=== PATIENT | male | born 1965 | race Two or more races ===

== ENCOUNTER 2023-03-21 11:13 | Inpatient (IN) | payer MEDICAID, OTHER ==
[~2023-03-21] VITALS: Ht 175.3 cm; Wt 67.9 kg
[2023-03-21 12:40] LABS: Urine Bacteria FEW /hpf (None Seen); Urine Blood 1+ /uL (Negative); Urine Clarity Clear (Clear); Urine Protein, UAD 1+ (Negative); Urine Specific Gravity 1.009 (1.001-1.035); Urine Urobilinogen Normal (Negative); Urine WBC 27 /hpf (0 - 3); Urine pH 6.5 (5.0-8.0)
[2023-03-21 12:55] LABS: Eosinophils # (auto) 0.2 10 ^3/uL (0-0.8); Hemoglobin 9.3 g/dL (13.5-17.5); Mean Corpuscular Volume 91.5 fL (80.0-100.0); Neutrophils # (auto) 7.9 10 ^3/uL (1.6-8.6)
[2023-03-21 12:58] LABS: Basophils # (auto) 0.1 10 ^3/uL (0-0.2); Basophils % (auto) 0.8 % (0.0-2.0); Eosinophils % (auto) 1.8 % (0.0-7.0); Hematocrit 29.1 % (41.0-53.0); Lymphocytes # (auto) 1.3 10 ^3/uL (0.4-5.4); Lymphocytes % (auto) 12.5 % (10.0-50.0); Mean Corpuscular Hemoglobin 29.3 pg (28.0-32.0); Monocytes # (auto) 0.8 10 ^3/uL (0-1.3); Monocytes % (auto) 7.5 % (0.0-12.0); Neutrophils % (auto) 77.4 % (37.0-80.0); Nucleated Red Blood Cells % 0.1 %; Red Blood Cells 3.19 10^6/uL (4.5-5.90); Red Cell Distribution Width 16.4 % (11.8-14.3); White Blood Cell 10.3 10^3/uL (4.4-10.8)
[2023-03-21 13:01] LABS: Urine Color Yellow (Yellow)
[2023-03-21 13:09] LABS: Alanine Aminotransferase 49 U/L (7-40); Albumin 3.8 g/dL (3.2-4.8); Alkaline Phosphatase 365 U/L (46-116); Anion Gap 10 (5-15); Aspartate Aminotransferase 45 U/L (13-40); BUN/Creatinine Ratio 14.3 (10.0-20.0); Bilirubin, Total 0.4 mg/dL (0.2-1.0); Calcium 6.8 mg/dL (8.7-10.4); Carbon Dioxide 22 mmol/L (20-30); Chloride 108 mmol/L (98-107); Glucose 85 mg/dL (74-106); Lipase 173 U/L (12-53); Potassium 4.6 mmol/L (3.5-5.1); Sodium 140 mmol/L (136-145); Total Protein 7.1 g/dL (5.7-8.2)
[2023-03-21] MEDS ORDERED: cefTRIAXone 1GM/50ML D5W 50 ML IV ONE ×2 (13:15→20:01)
[2023-03-21 13:46] LABS: Blood Urea Nitrogen 99 mg/dL (9-23)
[2023-03-21] MEDS ORDERED: SODIUM CHLORIDE 0.9% 1,000 ML IV ONE (14:00)
[2023-03-21] MEDS ORDERED: ACETAMINOPHEN 325 MG TAB PO PRN (16:00)
[2023-03-21] MEDS ORDERED: ONDANSETRON HCL 4 MG/2 ML VIAL IV PRN (16:00)
[2023-03-21 17:19] LABS: Amphetamine Screen, Urine Neg (NEGATIVE); Barbiturate Scree,Urine Neg (NEGATIVE); Benzodiazephine Screen, Urine Neg (NEGATIVE); Cannabinoid Screen, Urine Neg (NEGATIVE); Cocaine Screen, Urine Neg (NEGATIVE); Opiate Scree,Urine Neg (NEGATIVE); Phencyclidine Screen, Urine Neg (NEGATIVE)
[2023-03-21 17:54] LABS: % Iron Saturation 22.6 % (20-55)
[2023-03-21] MEDS ORDERED: TAMSULOSIN HYDROCHLORIDE 0.4 MG CAP PO ONE (20:01)
[2023-03-21] MEDS: TAMSULOSIN HYDROCHLORIDE 0.4 MG CAP PO SCH (20:02)
[2023-03-21] MEDS ORDERED: HYDROcodone-ACET 5/325MG TAB ONE (20:15)
[2023-03-21] MEDS: HYDROcodone-ACET 5/325MG TAB PO PRN (20:16)
[2023-03-21] MEDS: SODIUM CHLORIDE 0.9% 1,000 ML IV SCH (22:00)
[2023-03-21 23:10] LABS: Creatinine, Urine 39.7 mg/dL (30.0-125.0)
[2023-03-22] MEDS: SODIUM CHLORIDE 0.9% 1,000 ML IV SCH ×3 (00:20→17:49)
[2023-03-22 01:30] VITALS: PULSE 88; RESP 14; O2SAT 97
[2023-03-22 03:49] VITALS: BP 133/71; PULSE 79; RESP 18; TEMP 98; O2SAT 98
[2023-03-22 06:57] LABS: Eosinophils # (auto) 0.2 10 ^3/uL (0-0.8); Hemoglobin 7.4 g/dL (13.5-17.5); Monocytes # (auto) 0.9 10 ^3/uL (0-1.3); Neutrophils # (auto) 6.6 10 ^3/uL (1.6-8.6)
[2023-03-22 06:58] LABS: Basophils # (auto) 0.1 10 ^3/uL (0-0.2); Basophils % (auto) 0.6 % (0.0-2.0); Eosinophils % (auto) 2.1 % (0.0-7.0); Lymphocytes # (auto) 1.6 10 ^3/uL (0.4-5.4); Lymphocytes % (auto) 16.6 % (10.0-50.0); Mean Corpuscular Hemoglobin 29.6 pg (28.0-32.0); Mean Corpuscular Hgb Conc. 32.2 g/dL (32.0-36.0); Mean Corpuscular Volume 91.7 fL (80.0-100.0); Neutrophils % (auto) 70.7 % (37.0-80.0); Red Blood Cells 2.51 10^6/uL (4.5-5.90); Red Cell Distribution Width 16.8 % (11.8-14.3); White Blood Cell 9.4 10^3/uL (4.4-10.8)
[2023-03-22 07:21] LABS: Alanine Aminotransferase 37 U/L (7-40); Albumin 3.2 g/dL (3.2-4.8); Alkaline Phosphatase 276 U/L (46-116); Anion Gap 11 (5-15); Aspartate Aminotransferase 37 U/L (13-40); BUN/Creatinine Ratio 11.3 (10.0-20.0); Calcium 6.3 mg/dL (8.7-10.4); Carbon Dioxide 18 mmol/L (20-30); Chloride 110 mmol/L (98-107); Glucose 89 mg/dL (74-106); Potassium 4.2 mmol/L (3.5-5.1); Sodium 139 mmol/L (136-145)
[2023-03-22 07:22] LABS: Bilirubin, Total 0.2 mg/dL (0.2-1.0); Total Protein 5.9 g/dL (5.7-8.2)
[2023-03-22 07:28] LABS: Blood Urea Nitrogen 78 mg/dL (9-23)
[2023-03-22] MEDS: cefTRIAXone 1GM/50ML D5W 50 ML IV SCH (08:57)
[2023-03-22 09:00] VITALS: BP 129/71; PULSE 87; RESP 18; TEMP 98; O2SAT 96
[2023-03-22] MEDS ORDERED: FUROSEMIDE 40 MG/4 ML VIAL IV ONE (09:30)
[2023-03-22] MEDS ORDERED: FUROSEMIDE 40 MG/4 ML VIAL ONE (09:45)
[2023-03-22 12:51] VITALS: BP 154/77; PULSE 82; RESP 17; TEMP 97.6; O2SAT 99
[2023-03-22 17:00] VITALS: BP 139/73; PULSE 98; RESP 18; TEMP 98.8; O2SAT 99
[2023-03-22] MEDS: TAMSULOSIN HYDROCHLORIDE 0.4 MG CAP PO SCH (18:11)
[2023-03-22 23:17] VITALS: BP 116/66; PULSE 101; RESP 18; TEMP 98.1; O2SAT 100
[2023-03-23] MEDS: SODIUM CHLORIDE 0.9% 1,000 ML IV SCH ×3 (01:20→16:11)
[2023-03-23 05:42] VITALS: BP 119/61; PULSE 83; RESP 18; TEMP 98.3; O2SAT 98
[2023-03-23 08:30] VITALS: BP 114/69; PULSE 89; RESP 12; TEMP 98.6; O2SAT 98
[2023-03-23] MEDS: cefTRIAXone 1GM/50ML D5W 50 ML IV SCH (08:57)
[2023-03-23 09:00] VITALS: BP 114/69; PULSE 89; RESP 12; TEMP 98.6; O2SAT 98
[2023-03-23 11:43] LABS: Chloride 109 mmol/L (98-107); Potassium 4.1 mmol/L (3.5-5.1); Sodium 140 mmol/L (136-145)
[2023-03-23 11:44] LABS: Anion Gap 11 (5-15); Calcium 6.3 mg/dL (8.5-10.1); Carbon Dioxide 20 mmol/L (20-30)
[2023-03-23 11:49] LABS: BUN/Creatinine Ratio 10.9 (10.0-20.0); Blood Urea Nitrogen 73 mg/dL (9-23); Glucose 97 mg/dL (74-106)
[2023-03-23 13:00] VITALS: BP 111/65; PULSE 83; RESP 18; TEMP 98.4; O2SAT 98
[2023-03-23] MEDS: HYDROcodone-ACET 5/325MG TAB PO PRN (15:32)
[2023-03-23 17:02] VITALS: BP 134/77; PULSE 90; RESP 16; TEMP 98; O2SAT 97
[2023-03-23] MEDS: TAMSULOSIN HYDROCHLORIDE 0.4 MG CAP PO SCH (17:43)
[2023-03-23] MEDS: DOCUSATE SOD 100 MG CAP PO PRN (17:44)
[2023-03-23 22:00] VITALS: BP 115/65; PULSE 92; RESP 16; TEMP 98; O2SAT 96
[2023-03-24] VITALS (7 sets, daily range): BP systolic 104–129; BP diastolic 56–72; PULSE 51–84; RESP 15–22; TEMP 36.8; O2SAT 94–100
[2023-03-24] MEDS: SODIUM CHLORIDE 0.9% 1,000 ML IV SCH ×2 (06:30→18:51)
[2023-03-24 06:32] LABS: Basophils # (auto) 0 10 ^3/uL (0-0.2); Eosinophils # (auto) 0.2 10 ^3/uL (0-0.8); Hemoglobin 7.4 g/dL (13.5-17.5); Lymphocytes # (auto) 1.3 10 ^3/uL (0.4-5.4)
[2023-03-24 06:36] LABS: Basophils % (auto) 0.7 % (0.0-2.0); Eosinophils % (auto) 2.9 % (0.0-7.0); Hematocrit 23.1 % (41.0-53.0); Mean Corpuscular Hemoglobin 29.7 pg (28.0-32.0); Mean Corpuscular Hgb Conc. 32.1 g/dL (32.0-36.0); Mean Corpuscular Volume 92.6 fL (80.0-100.0); Monocytes # (auto) 0.7 10 ^3/uL (0-1.3); Monocytes % (auto) 11.5 % (0.0-12.0); Neutrophils # (auto) 3.6 10 ^3/uL (1.6-8.6); Neutrophils % (auto) 61.9 % (37.0-80.0); Nucleated Red Blood Cells % 0.1 %; Red Blood Cells 2.49 10^6/uL (4.5-5.90); Red Cell Distribution Width 18.9 % (11.8-14.3); White Blood Cell 5.7 10^3/uL (4.4-10.8)
[2023-03-24 06:42] LABS: Alanine Aminotransferase 34 U/L (7-40); Albumin 3.2 g/dL (3.2-4.8); Alkaline Phosphatase 239 U/L (46-116); Anion Gap 10 (5-15); Aspartate Aminotransferase 32 U/L (13-40); BUN/Creatinine Ratio 11.4 (10.0-20.0); Bilirubin, Total 0.3 mg/dL (0.2-1.0); Blood Urea Nitrogen 77 mg/dL (9-23); Carbon Dioxide 19 mmol/L (20-30); Chloride 111 mmol/L (98-107); Glucose 87 mg/dL (74-106); Potassium 4.3 mmol/L (3.5-5.1); Sodium 140 mmol/L (136-145); Total Protein 5.9 g/dL (5.7-8.2)
[2023-03-24 06:55] LABS: Calcium 5.9 mg/dL (8.7-10.4)
[2023-03-24] MEDS: HYDROcodone-ACET 5/325MG TAB PO PRN ×2 (08:29→17:16)
[2023-03-24] MEDS: DOCUSATE SOD 100 MG CAP PO PRN (08:29)
[2023-03-24] MEDS: cefTRIAXone 1GM/50ML D5W 50 ML IV SCH (08:31)
[2023-03-24] MEDS: TAMSULOSIN HYDROCHLORIDE 0.4 MG CAP PO SCH (17:09)
[2023-03-25] VITALS (10 sets, daily range): BP systolic 119–148; BP diastolic 72–85; PULSE 76–94; RESP 12–18; TEMP 97.2–98.2; O2SAT 91–99
[2023-03-25] MEDS: SODIUM CHLORIDE 0.9% 1,000 ML IV SCH ×2 (03:02→23:29)
[2023-03-25 06:26] LABS: Chloride 109 mmol/L (98-107); Potassium 4.3 mmol/L (3.5-5.1); Sodium 139 mmol/L (136-145)
[2023-03-25 06:27] LABS: Anion Gap 10 (5-15); Carbon Dioxide 20 mmol/L (20-30)
[2023-03-25 06:32] LABS: BUN/Creatinine Ratio 10.8 (10.0-20.0); Blood Urea Nitrogen 71 mg/dL (9-23); Glucose 78 mg/dL (74-106); Magnesium 1.3 mg/dL (1.6-2.6)
[2023-03-25 06:34] LABS: Phosphorus 6.6 mg/dL (2.4-5.1)
[2023-03-25 06:42] LABS: Calcium 5.8 mg/dL (8.7-10.4)
[2023-03-25 08:47] LABS: INR 1.21 (0.9-1.15); Partial Thromboplastin Time 29.5 SEC (24.5-34.5); Prothrombin Time 12.5 sec (9.3-11.8)
[2023-03-25] MEDS: cefTRIAXone 1GM/50ML D5W 50 ML IV SCH (08:53)
[2023-03-25 09:21] LABS: Hepatitis B Surface Antigen Negative (Negative)
[2023-03-25] MEDS: HYDROcodone-ACET 5/325MG TAB PO PRN ×4 (10:41→22:14)
[2023-03-25 11:19] LABS: Hepatitis C Antibody Positive (Negative)
[2023-03-25] MEDS ORDERED: KEP500T PO (11:28)
[2023-03-25] MEDS ORDERED: BACL10TA PO (11:28)
[2023-03-25] MEDS ORDERED: FAMO-12 PO (11:28)
[2023-03-25] MEDS ORDERED: DULO60CA41 PO (11:28)
[2023-03-25] MEDS ORDERED: CLON0.1T PO (11:28)
[2023-03-25] MEDS ORDERED: DOXE25CA2 PO (11:28)
[2023-03-25] MEDS ORDERED: GABA-1250 PO (11:28)
[2023-03-25] MEDS ORDERED: ANGIOMAX 250 MG VIAL IV ONE (14:47)
[2023-03-25] MEDS ORDERED: MIDAZOLAM HCL 2MG/2ML 2ml VIAL (1mg/ml) ONE (14:47)
[2023-03-25] MEDS ORDERED: fentaNYL CITRATE 100 MCG/2 ML VL ONE (14:47)
[2023-03-25] MEDS ORDERED: SODIUM CHL 0.9% 0 ML ONE (14:48)
[2023-03-25] MEDS ORDERED: LIDOCAINE 2%HCL (LOCAL ANESTH.) INJ 20ML MDV ONE (14:48)
[2023-03-25] MEDS ORDERED: IOHEXOL 350 MG/ML 100ML IJ ONE (14:54)
[2023-03-25] MEDS: TAMSULOSIN HYDROCHLORIDE 0.4 MG CAP PO SCH (18:27)
[2023-03-26] VITALS (7 sets, daily range): BP systolic 105–145; BP diastolic 67–89; PULSE 82–105; RESP 15–19; TEMP 97.5–98.5; O2SAT 95–98
[2023-03-26 06:41] LABS: Chloride 111 mmol/L (98-107); Potassium 4.7 mmol/L (3.5-5.1); Sodium 139 mmol/L (136-145)
[2023-03-26 06:42] LABS: Anion Gap 12 (5-15); Calcium 6.3 mg/dL (8.5-10.1); Carbon Dioxide 16 mmol/L (20-30)
[2023-03-26 06:47] LABS: BUN/Creatinine Ratio 8.3 (10.0-20.0); Glucose 67 mg/dL (74-106)
[2023-03-26 06:57] LABS: Blood Urea Nitrogen 54 mg/dL (9-23)
[2023-03-26] MEDS: cefTRIAXone 1GM/50ML D5W 50 ML IV SCH (08:42)
[2023-03-26] MEDS: DOCUSATE SOD 100 MG CAP PO PRN (08:52)
[2023-03-26] MEDS: HYDROcodone-ACET 5/325MG TAB PO PRN ×2 (08:53→17:33)
[2023-03-26] MEDS: SODIUM CHLORIDE 0.9% 1,000 ML IV SCH (11:06)
[2023-03-26] MEDS ORDERED: LACTULOSE 20Gm/30ML SOLN PO ONE (12:30)
[2023-03-26] MEDS: TAMSULOSIN HYDROCHLORIDE 0.4 MG CAP PO SCH (17:32)
[2023-03-27] VITALS (8 sets, daily range): BP systolic 136–144; BP diastolic 79–87; PULSE 78–97; RESP 18–20; TEMP 97.7–99; O2SAT 95–96
[2023-03-27] MEDS: SODIUM CHLORIDE 0.9% 1,000 ML IV SCH ×2 (03:10→08:50)
[2023-03-27 05:16] LABS: Calcium 6.2 mg/dL (8.7-10.4); Chloride 110 mmol/L (98-107); Potassium 4.2 mmol/L (3.5-5.1); Sodium 140 mmol/L (136-145)
[2023-03-27 05:17] LABS: Anion Gap 11 (5-15); Carbon Dioxide 19 mmol/L (20-30)
[2023-03-27 05:22] LABS: BUN/Creatinine Ratio 11.8 (10.0-20.0); Glucose 91 mg/dL (74-106)
[2023-03-27 05:35] LABS: Blood Urea Nitrogen 77 mg/dL (9-23)
[2023-03-27] MEDS: cefTRIAXone 1GM/50ML D5W 50 ML IV SCH (08:46)
[2023-03-27] MEDS ORDERED: IRON SUCROSE COMPLEX 100 ML IV SCH (13:45)
[2023-03-27] MEDS: TAMSULOSIN HYDROCHLORIDE 0.4 MG CAP PO SCH (18:10)
[2023-03-28] VITALS (7 sets, daily range): BP systolic 133–147; BP diastolic 71–85; PULSE 59–96; RESP 16–19; TEMP 98.1–98.7; O2SAT 92–99
[2023-03-28 05:06] LABS: Basophils # (auto) 0 10 ^3/uL (0-0.2); Basophils % (auto) 0.7 % (0.0-2.0); Lymphocytes # (auto) 1.5 10 ^3/uL (0.4-5.4)
[2023-03-28 05:09] LABS: Eosinophils # (auto) 0.1 10 ^3/uL (0-0.8); Eosinophils % (auto) 2.3 % (0.0-7.0); Hematocrit 22.2 % (41.0-53.0); Hemoglobin 7.4 g/dL (13.5-17.5); Lymphocytes % (auto) 26.4 % (10.0-50.0); Mean Corpuscular Hemoglobin 30.9 pg (28.0-32.0); Mean Corpuscular Hgb Conc. 33.2 g/dL (32.0-36.0); Mean Corpuscular Volume 93.2 fL (80.0-100.0); Monocytes % (auto) 16.8 % (0.0-12.0); Neutrophils # (auto) 3.1 10 ^3/uL (1.6-8.6); Neutrophils % (auto) 53.8 % (37.0-80.0); Red Blood Cells 2.38 10^6/uL (4.5-5.90); White Blood Cell 5.8 10^3/uL (4.4-10.8)
[2023-03-28 05:12] LABS: Red Cell Distribution Width 20.4 % (11.8-14.3)
[2023-03-28 05:19] LABS: Alanine Aminotransferase 30 U/L (7-40); Albumin 3.2 g/dL (3.2-4.8); Alkaline Phosphatase 224 U/L (46-116); Anion Gap 11 (5-15); Aspartate Aminotransferase 31 U/L (13-40); BUN/Creatinine Ratio 11.7 (10.0-20.0); Blood Urea Nitrogen 76 mg/dL (9-23); Calcium 6.2 mg/dL (8.7-10.4); Carbon Dioxide 18 mmol/L (20-30); Chloride 111 mmol/L (98-107); Glucose 87 mg/dL (74-106); Potassium 4.2 mmol/L (3.5-5.1); Sodium 140 mmol/L (136-145)
[2023-03-28 05:20] LABS: Bilirubin, Total 0.3 mg/dL (0.2-1.0); Total Protein 5.7 g/dL (5.7-8.2)
[2023-03-28] MEDS: cefTRIAXone 1GM/50ML D5W 50 ML IV SCH (09:56)
[2023-03-28] MEDS ORDERED: FUROSEMIDE 40 MG/4 ML VIAL ONE (09:56)
[2023-03-28] MEDS ORDERED: FUROSEMIDE 40 MG/4 ML VIAL IV ONE (10:00)
[2023-03-28] MEDS ORDERED: IRON SUCROSE COMPLEX 100 ML IV SCH (12:00)
[2023-03-28] MEDS: SODIUM CHLORIDE 0.9% 1,000 ML IV SCH (12:30)
[2023-03-28] MEDS: SODIUM FERR GLUC 62.5MG/5ML 125 MG in SODIUM CHL 0.9% 100 ML IV SCH (14:15)
[2023-03-28] MEDS: TAMSULOSIN HYDROCHLORIDE 0.4 MG CAP PO SCH (17:35)
[2023-03-29] VITALS (7 sets, daily range): BP systolic 114–151; BP diastolic 64–89; PULSE 82–106; RESP 16–18; TEMP 97.8–98.7; O2SAT 96–99
[2023-03-29] MEDS: SODIUM CHLORIDE 0.9% 1,000 ML IV SCH (05:10)
[2023-03-29 06:33] LABS: Basophils # (auto) 0.1 10 ^3/uL (0-0.2); Basophils % (auto) 0.9 % (0.0-2.0); Eosinophils # (auto) 0.2 10 ^3/uL (0-0.8); Eosinophils % (auto) 3.1 % (0.0-7.0); Hematocrit 23.4 % (41.0-53.0); Hemoglobin 7.8 g/dL (13.5-17.5); Lymphocytes # (auto) 1.4 10 ^3/uL (0.4-5.4); Lymphocytes % (auto) 24.8 % (10.0-50.0); Mean Corpuscular Hemoglobin 30.5 pg (28.0-32.0); Mean Corpuscular Hgb Conc. 33.1 g/dL (32.0-36.0); Monocytes # (auto) 0.9 10 ^3/uL (0-1.3); Neutrophils % (auto) 55.2 % (37.0-80.0); Red Blood Cells 2.55 10^6/uL (4.5-5.90); Red Cell Distribution Width 20.6 % (11.8-14.3); White Blood Cell 5.5 10^3/uL (4.4-10.8)
[2023-03-29 06:53] LABS: Alanine Aminotransferase 35 U/L (7-40); Albumin 3.5 g/dL (3.2-4.8); Alkaline Phosphatase 236 U/L (46-116); Anion Gap 15 (5-15); Aspartate Aminotransferase 35 U/L (13-40); BUN/Creatinine Ratio 12.5 (10.0-20.0); Bilirubin, Total 0.2 mg/dL (0.2-1.0); Calcium 6.6 mg/dL (8.5-10.1); Carbon Dioxide 16 mmol/L (20-30); Chloride 109 mmol/L (98-107); Glucose 88 mg/dL (74-106); Potassium 4.3 mmol/L (3.5-5.1); Sodium 140 mmol/L (136-145); Total Protein 6.3 g/dL (5.7-8.2)
[2023-03-29 07:43] LABS: Blood Urea Nitrogen 83 mg/dL (9-23)
[2023-03-29 08:06] LABS: PSA Free 2.7 ng/mL; Prostate Specific Antigen 12.3 ng/mL (0.0-4.0)
[2023-03-29] MEDS: cefTRIAXone 1GM/50ML D5W 50 ML IV SCH (09:40)
[2023-03-29] MEDS: SODIUM FERR GLUC 62.5MG/5ML 125 MG in SODIUM CHL 0.9% 100 ML IV SCH (12:00)
[2023-03-29] MEDS: HYDROcodone-ACET 5/325MG TAB PO PRN (16:39)
[2023-03-29] MEDS: SODIUM BICARBONATE 50ML VIAL 50 ML in SOD CHL 0.45% 1,000 ML IV SCH ×2 (16:40→23:32)
[2023-03-29] MEDS: TAMSULOSIN HYDROCHLORIDE 0.4 MG CAP PO SCH (18:02)
[2023-03-30 05:00] VITALS: BP 123/76; PULSE 95; RESP 18; TEMP 98.9; O2SAT 97
[2023-03-30] MEDS: SODIUM BICARBONATE 50ML VIAL 50 ML in SOD CHL 0.45% 1,000 ML IV SCH ×3 (06:38→23:47)
[2023-03-30 06:53] LABS: Basophils # (auto) 0.1 10 ^3/uL (0-0.2); Eosinophils # (auto) 0.2 10 ^3/uL (0-0.8); Monocytes # (auto) 0.8 10 ^3/uL (0-1.3)
[2023-03-30 06:56] LABS: Eosinophils % (auto) 4.4 % (0.0-7.0); Hematocrit 23.3 % (41.0-53.0); Hemoglobin 7.6 g/dL (13.5-17.5); Lymphocytes # (auto) 1.5 10 ^3/uL (0.4-5.4); Lymphocytes % (auto) 28.3 % (10.0-50.0); Mean Corpuscular Hemoglobin 30.8 pg (28.0-32.0); Mean Corpuscular Hgb Conc. 32.8 g/dL (32.0-36.0); Mean Corpuscular Volume 93.8 fL (80.0-100.0); Monocytes % (auto) 14.8 % (0.0-12.0); Neutrophils # (auto) 2.7 10 ^3/uL (1.6-8.6); Neutrophils % (auto) 51.5 % (37.0-80.0); Red Blood Cells 2.48 10^6/uL (4.5-5.90); White Blood Cell 5.3 10^3/uL (4.4-10.8)
[2023-03-30 07:49] VITALS: RESP 18
[2023-03-30 07:55] LABS: Alanine Aminotransferase 27 U/L (7-40); Albumin 3.3 g/dL (3.2-4.8); Alkaline Phosphatase 220 U/L (46-116); Anion Gap 15 (5-15); Aspartate Aminotransferase 30 U/L (13-40); BUN/Creatinine Ratio 11.7 (10.0-20.0); Bilirubin, Total 0.2 mg/dL (0.2-1.0); Blood Urea Nitrogen 77 mg/dL (9-23); Calcium 6.6 mg/dL (8.5-10.1); Carbon Dioxide 17 mmol/L (20-30); Chloride 109 mmol/L (98-107); Glucose 88 mg/dL (74-106); Potassium 4.3 mmol/L (3.5-5.1); Sodium 141 mmol/L (136-145); Total Protein 6.1 g/dL (5.7-8.2)
[2023-03-30 09:00] VITALS: BP 127/81; PULSE 90; RESP 18; TEMP 98.3; O2SAT 95
[2023-03-30] MEDS: cefTRIAXone 1GM/50ML D5W 50 ML IV SCH (09:00)
[2023-03-30] MEDS: SODIUM FERR GLUC 62.5MG/5ML 125 MG in SODIUM CHL 0.9% 100 ML IV SCH (12:43)
[2023-03-30 13:00] VITALS: BP 108/75; PULSE 87; RESP 16; TEMP 98.3; O2SAT 95
[2023-03-30 17:00] VITALS: BP 132/80; PULSE 94; RESP 20; TEMP 98.6; O2SAT 99
[2023-03-30] MEDS: TAMSULOSIN HYDROCHLORIDE 0.4 MG CAP PO SCH (17:27)
[2023-03-30 22:00] VITALS: BP 134/74; PULSE 87; RESP 18; TEMP 98.8; O2SAT 96
[2023-03-31 05:00] VITALS: BP 136/74; PULSE 86; RESP 18; TEMP 98; O2SAT 95
[2023-03-31 07:12] LABS: Hematocrit 22.2 % (41.0-53.0); White Blood Cell 5.4 10^3/uL (4.4-10.8)
[2023-03-31 07:14] LABS: Hemoglobin 7.2 g/dL (13.5-17.5); Mean Corpuscular Hemoglobin 30.4 pg (28.0-32.0); Mean Corpuscular Hgb Conc. 32.5 g/dL (32.0-36.0); Mean Corpuscular Volume 93.3 fL (80.0-100.0); Red Blood Cells 2.38 10^6/uL (4.5-5.90)
[2023-03-31 07:37] LABS: Red Cell Distribution Width 20.1 % (11.8-14.3)
[2023-03-31 07:38] LABS: Basophils % (manual) 0 (0.0-2.0); Blast Cells 0; Metamyelocytes % 0; Myelocytes % 0; Reactive Lymphocytes 0
[2023-03-31 08:16] LABS: Chloride 111 mmol/L (98-107); Potassium 4.4 mmol/L (3.5-5.1); Sodium 143 mmol/L (136-145)
[2023-03-31 08:17] LABS: Anion Gap 11 (5-15); Carbon Dioxide 21 mmol/L (20-30)
[2023-03-31 08:18] LABS: Calcium 6.6 mg/dL (8.5-10.1)
[2023-03-31 08:22] LABS: Glucose 84 mg/dL (74-106)
[2023-03-31 08:23] LABS: BUN/Creatinine Ratio 13.2 (10.0-20.0)
[2023-03-31 08:31] LABS: Blood Urea Nitrogen 87 mg/dL (9-23)
[2023-03-31 09:00] VITALS: BP 141/84; PULSE 84; RESP 16; TEMP 98.9; O2SAT 100
[2023-03-31] MEDS: cefTRIAXone 1GM/50ML D5W 50 ML IV SCH (09:02)
[2023-03-31] MEDS: SODIUM BICARBONATE 50ML VIAL 50 ML in SOD CHL 0.45% 1,000 ML IV SCH ×2 (10:47→11:45)
[2023-03-31 11:02] LABS: Band Neutrophils % (manual) 2; Eosinophils % (manual) 2 (0-7); Lymphocytes % (manual) 30 (10.0-50.0); Monocytes % (manual) 17 (0-12); Promyelocytes % 1
[2023-03-31 11:03] LABS: Platelet Estimate Adequate
[2023-03-31] MEDS: CALCIUM ACETATE 667 MG CAP PO SCH ×2 (12:44→17:46)
[2023-03-31] MEDS: SODIUM FERR GLUC 62.5MG/5ML 125 MG in SODIUM CHL 0.9% 100 ML IV SCH (12:44)
[2023-03-31 13:00] VITALS: BP 138/79; PULSE 93; RESP 18; TEMP 97.9; O2SAT 93
[2023-03-31] MEDS: TAMSULOSIN HYDROCHLORIDE 0.4 MG CAP PO SCH (17:46)
[2023-03-31 22:20] VITALS: BP 132/62; PULSE 78; RESP 18; TEMP 97.9; O2SAT 97
[2023-04-01] MEDS: SODIUM BICARBONATE 50ML VIAL 50 ML in SOD CHL 0.45% 1,000 ML IV SCH ×4 (01:45→21:20)
[2023-04-01 04:46] VITALS: BP 127/78; PULSE 85; RESP 18; TEMP 97.8; O2SAT 98
[2023-04-01 06:44] LABS: Basophils # (auto) 0.1 10 ^3/uL (0-0.2); Eosinophils # (auto) 0.2 10 ^3/uL (0-0.8); Mean Corpuscular Hgb Conc. 32.5 g/dL (32.0-36.0); Monocytes # (auto) 0.8 10 ^3/uL (0-1.3); Neutrophils # (auto) 3.2 10 ^3/uL (1.6-8.6)
[2023-04-01 06:46] LABS: Basophils % (auto) 1.1 % (0.0-2.0); Eosinophils % (auto) 3.8 % (0.0-7.0); Hematocrit 23.5 % (41.0-53.0); Hemoglobin 7.6 g/dL (13.5-17.5); Lymphocytes # (auto) 1.5 10 ^3/uL (0.4-5.4); Lymphocytes % (auto) 25.7 % (10.0-50.0); Mean Corpuscular Hemoglobin 30.7 pg (28.0-32.0); Mean Corpuscular Volume 94.7 fL (80.0-100.0); Monocytes % (auto) 13.8 % (0.0-12.0); Neutrophils % (auto) 55.6 % (37.0-80.0); Red Blood Cells 2.48 10^6/uL (4.5-5.90); White Blood Cell 5.8 10^3/uL (4.4-10.8)
[2023-04-01 06:58] LABS: Anion Gap 11 (5-15); Carbon Dioxide 22 mmol/L (20-30); Chloride 107 mmol/L (98-107); Potassium 4.5 mmol/L (3.5-5.1); Sodium 140 mmol/L (136-145)
[2023-04-01 07:00] LABS: Calcium 6.8 mg/dL (8.5-10.1)
[2023-04-01 07:05] LABS: Glucose 80 mg/dL (74-106)
[2023-04-01 07:22] LABS: Red Cell Distribution Width 20.9 % (11.8-14.3)
[2023-04-01 07:28] LABS: BUN/Creatinine Ratio 12.7 (10.0-20.0)
[2023-04-01 07:35] LABS: Blood Urea Nitrogen 81 mg/dL (9-23)
[2023-04-01 09:00] VITALS: BP 169/91; PULSE 101; RESP 16; TEMP 97.8; O2SAT 97
[2023-04-01] MEDS: cefTRIAXone 1GM/50ML D5W 50 ML IV SCH (09:27)
[2023-04-01] MEDS: CALCIUM ACETATE 667 MG CAP PO SCH ×3 (09:28→17:41)
[2023-04-01] MEDS: SODIUM FERR GLUC 62.5MG/5ML 125 MG in SODIUM CHL 0.9% 100 ML IV SCH (12:00)
[2023-04-01 17:05] VITALS: BP 148/57; PULSE 74; RESP 16; TEMP 98.8; O2SAT 77
[2023-04-01] MEDS: TAMSULOSIN HYDROCHLORIDE 0.4 MG CAP PO SCH (17:41)
[2023-04-01 22:49] VITALS: BP 145/86; PULSE 109; RESP 18; TEMP 98.6; O2SAT 97
[2023-04-02] VITALS (7 sets, daily range): BP systolic 133–155; BP diastolic 70–88; PULSE 68–99; RESP 17–18; TEMP 97.7–98.1; O2SAT 95–99
[2023-04-02 06:56] LABS: Basophils # (auto) 0.1 10 ^3/uL (0-0.2); Hematocrit 23.3 % (41.0-53.0); Lymphocytes # (auto) 1.6 10 ^3/uL (0.4-5.4); Mean Corpuscular Hgb Conc. 32.9 g/dL (32.0-36.0)
[2023-04-02 06:58] LABS: Chloride 110 mmol/L (98-107); Potassium 4.4 mmol/L (3.5-5.1); Sodium 142 mmol/L (136-145)
[2023-04-02 06:59] LABS: Anion Gap 10 (5-15); Carbon Dioxide 22 mmol/L (20-30)
[2023-04-02 07:00] LABS: Basophils % (auto) 1.1 % (0.0-2.0); Calcium 7.1 mg/dL (8.5-10.1); Eosinophils # (auto) 0.3 10 ^3/uL (0-0.8); Eosinophils % (auto) 4.6 % (0.0-7.0); Hemoglobin 7.7 g/dL (13.5-17.5); Lymphocytes % (auto) 28.6 % (10.0-50.0); Mean Corpuscular Hemoglobin 30.8 pg (28.0-32.0); Mean Corpuscular Volume 93.6 fL (80.0-100.0); Monocytes # (auto) 0.8 10 ^3/uL (0-1.3); Monocytes % (auto) 14.8 % (0.0-12.0); Neutrophils # (auto) 2.9 10 ^3/uL (1.6-8.6); Neutrophils % (auto) 50.9 % (37.0-80.0); Nucleated Red Blood Cells % 0.1 %; Red Blood Cells 2.49 10^6/uL (4.5-5.90); White Blood Cell 5.6 10^3/uL (4.4-10.8)
[2023-04-02 07:05] LABS: BUN/Creatinine Ratio 13.2 (10.0-20.0); Glucose 86 mg/dL (74-106)
[2023-04-02 07:11] LABS: Blood Urea Nitrogen 85 mg/dL (9-23)
[2023-04-02 07:14] LABS: Red Cell Distribution Width 20.9 % (11.8-14.3)
[2023-04-02] MEDS: CALCIUM ACETATE 667 MG CAP PO SCH ×3 (07:47→17:37)
[2023-04-02] MEDS: cefTRIAXone 1GM/50ML D5W 50 ML IV SCH (08:51)
[2023-04-02] MEDS: SODIUM FERR GLUC 62.5MG/5ML 125 MG in SODIUM CHL 0.9% 100 ML IV SCH (12:40)
[2023-04-02] MEDS: TAMSULOSIN HYDROCHLORIDE 0.4 MG CAP PO SCH (17:37)
[2023-04-02] MEDS: HYDROcodone-ACET 5/325MG TAB PO PRN (20:58)
[2023-04-03] VITALS (10 sets, daily range): BP systolic 114–148; BP diastolic 61–83; PULSE 74–115; RESP 13–18; TEMP 97.8–98.1; O2SAT 94–98
[2023-04-03 08:05] LABS: Basophils # (auto) 0.1 10 ^3/uL (0-0.2); Basophils % (auto) 1.3 % (0.0-2.0); Hemoglobin 7.8 g/dL (13.5-17.5); Neutrophils # (auto) 2.5 10 ^3/uL (1.6-8.6)
[2023-04-03 08:07] LABS: Eosinophils # (auto) 0.3 10 ^3/uL (0-0.8); Eosinophils % (auto) 4.7 % (0.0-7.0); Hematocrit 24.1 % (41.0-53.0); Lymphocytes # (auto) 1.9 10 ^3/uL (0.4-5.4); Lymphocytes % (auto) 34.2 % (10.0-50.0); Mean Corpuscular Hemoglobin 31.3 pg (28.0-32.0); Mean Corpuscular Hgb Conc. 32.5 g/dL (32.0-36.0); Mean Corpuscular Volume 96.5 fL (80.0-100.0); Monocytes # (auto) 0.7 10 ^3/uL (0-1.3); Monocytes % (auto) 13.3 % (0.0-12.0); Neutrophils % (auto) 46.5 % (37.0-80.0); Red Cell Distribution Width 20.9 % (11.8-14.3); White Blood Cell 5.4 10^3/uL (4.4-10.8)
[2023-04-03 08:13] LABS: Alanine Aminotransferase 35 U/L (7-40); Albumin 3.4 g/dL (3.2-4.8); Alkaline Phosphatase 207 U/L (46-116); Anion Gap 10 (5-15); Aspartate Aminotransferase 40 U/L (13-40); Calcium 7.4 mg/dL (8.5-10.1); Carbon Dioxide 21 mmol/L (20-30); Chloride 111 mmol/L (98-107); Glucose 86 mg/dL (74-106); Potassium 4.5 mmol/L (3.5-5.1); Sodium 142 mmol/L (136-145)
[2023-04-03 08:14] LABS: Bilirubin, Total 0.3 mg/dL (0.2-1.0); Total Protein 6.2 g/dL (5.7-8.2)
[2023-04-03 08:27] LABS: Blood Urea Nitrogen 71 mg/dL (9-23)
[2023-04-03] MEDS: CALCIUM ACETATE 667 MG CAP PO SCH ×3 (10:07→18:05)
[2023-04-03] MEDS: SODIUM FERR GLUC 62.5MG/5ML 125 MG in SODIUM CHL 0.9% 100 ML IV SCH (12:00)
[2023-04-03] MEDS ORDERED: LIDOCAINE 2%HCL (LOCAL ANESTH.) INJ 20ML MDV ONE (13:17)
[2023-04-03] MEDS ORDERED: HEPARIN SODIUM (PORCINE) 5000 UNITS/ML 1ML VIAL ONE (13:18)
[2023-04-03] MEDS ORDERED: MIDAZOLAM HCL 2MG/2ML 2ml VIAL (1mg/ml) ONE (13:27)
[2023-04-03] MEDS ORDERED: fentaNYL CITRATE 100 MCG/2 ML VL ONE (13:27)
[2023-04-03] MEDS ORDERED: ceFAZolin 1GM/50ML 50 ML IV ONE (13:33)
[2023-04-03] MEDS: HYDROcodone-ACET 5/325MG TAB PO PRN ×2 (15:15→21:32)
[2023-04-03] MEDS: TAMSULOSIN HYDROCHLORIDE 0.4 MG CAP PO SCH (18:05)
[2023-04-03] MEDS ORDERED: TEMAZEPAM 15 MG CAP PO ONE (21:15)
[2023-04-04] VITALS (8 sets, daily range): BP systolic 14–166; BP diastolic 60–80; PULSE 74–113; RESP 16–20; TEMP 97.5–98.8; O2SAT 95–99
[2023-04-04 05:42] LABS: Basophils # (auto) 0.1 10 ^3/uL (0-0.2); Eosinophils # (auto) 0.2 10 ^3/uL (0-0.8); Eosinophils % (auto) 3.6 % (0.0-7.0); Hemoglobin 7.8 g/dL (13.5-17.5); Lymphocytes # (auto) 1.9 10 ^3/uL (0.4-5.4); Monocytes # (auto) 0.8 10 ^3/uL (0-1.3); Nucleated Red Blood Cells % 0.1 %; Red Blood Cells 2.52 10^6/uL (4.5-5.90)
[2023-04-04 05:45] LABS: Hematocrit 23.9 % (41.0-53.0); Lymphocytes % (auto) 28.8 % (10.0-50.0); Mean Corpuscular Hgb Conc. 32.7 g/dL (32.0-36.0); Mean Corpuscular Volume 94.8 fL (80.0-100.0); Monocytes % (auto) 12.4 % (0.0-12.0); Neutrophils # (auto) 3.5 10 ^3/uL (1.6-8.6); Neutrophils % (auto) 54.2 % (37.0-80.0); White Blood Cell 6.5 10^3/uL (4.4-10.8)
[2023-04-04 05:51] LABS: Red Cell Distribution Width 20.7 % (11.8-14.3)
[2023-04-04 06:38] LABS: Alanine Aminotransferase 31 U/L (7-40); Alkaline Phosphatase 210 U/L (46-116); Anion Gap 10 (5-15); Aspartate Aminotransferase 37 U/L (13-40); BUN/Creatinine Ratio 13.1 (10.0-20.0); Calcium 7.4 mg/dL (8.7-10.4); Carbon Dioxide 21 mmol/L (20-30); Chloride 107 mmol/L (98-107); Glucose 79 mg/dL (74-106); Potassium 4.8 mmol/L (3.5-5.1); Sodium 138 mmol/L (136-145)
[2023-04-04 06:40] LABS: Albumin 3.6 g/dL (3.2-4.8)
[2023-04-04 06:41] LABS: Bilirubin, Total 0.2 mg/dL (0.2-1.0); Total Protein 6.4 g/dL (5.7-8.2)
[2023-04-04 06:50] LABS: Blood Urea Nitrogen 86 mg/dL (9-23)
[2023-04-04] MEDS ORDERED: SODIUM CHL 0.9% 1000 ML BAG XX ONE (07:00)
[2023-04-04] MEDS: CALCIUM ACETATE 667 MG CAP PO SCH ×3 (09:32→17:11)
[2023-04-04] MEDS: HYDROcodone-ACET 5/325MG TAB PO PRN (09:32)
[2023-04-04 09:35] LABS: Hepatitis B Surface Antigen Negative (Negative)
[2023-04-04 09:56] LABS: Hepatitis A Ab IgM Negative; Hepatitis B Core IgM Negative
[2023-04-04 10:20] LABS: Hepatitis C Antibody Reactive (Negative)
[2023-04-04] MEDS: SODIUM FERR GLUC 62.5MG/5ML 125 MG in SODIUM CHL 0.9% 100 ML IV SCH (13:34)
[2023-04-04] MEDS: TAMSULOSIN HYDROCHLORIDE 0.4 MG CAP PO SCH (17:11)
[2023-04-04] MEDS ORDERED: EPOETIN ALFA-EPBX 10,000 UNIT/1ML VIAL SC ONE (21:00)
[2023-04-05 05:00] VITALS: BP 133/85; PULSE 117; RESP 17; TEMP 98.3; O2SAT 97
[2023-04-05 05:41] LABS: Hematocrit 24.2 % (41.0-53.0); Hemoglobin 8.2 g/dL (13.5-17.5); Mean Corpuscular Hemoglobin 31.9 pg (28.0-32.0); Mean Corpuscular Hgb Conc. 33.7 g/dL (32.0-36.0); Mean Corpuscular Volume 94.8 fL (80.0-100.0); Red Blood Cells 2.55 10^6/uL (4.5-5.90); White Blood Cell 5.8 10^3/uL (4.4-10.8)
[2023-04-05 05:48] LABS: Alanine Aminotransferase 27 U/L (7-40); Albumin 3.7 g/dL (3.2-4.8); Alkaline Phosphatase 211 U/L (46-116); Anion Gap 8 (5-15); Aspartate Aminotransferase 36 U/L (13-40); BUN/Creatinine Ratio 10.5 (10.0-20.0); Calcium 7.8 mg/dL (8.7-10.4); Carbon Dioxide 27 mmol/L (20-30); Chloride 104 mmol/L (98-107); Glucose 93 mg/dL (74-106); Potassium 4.4 mmol/L (3.5-5.1); Sodium 139 mmol/L (136-145)
[2023-04-05 05:49] LABS: Bilirubin, Total 0.3 mg/dL (0.2-1.0); Total Protein 6.5 g/dL (5.7-8.2)
[2023-04-05 05:57] LABS: Basophils % (manual) 0 (0.0-2.0); Blast Cells 0; Promyelocytes % 0; Reactive Lymphocytes 0
[2023-04-05 06:09] LABS: Blood Urea Nitrogen 53 mg/dL (9-23)
[2023-04-05 07:57] LABS: Band Neutrophils % (manual) 7; Eosinophils % (manual) 1 (0-7); Lymphocytes % (manual) 13 (10.0-50.0); Metamyelocytes % 1; Monocytes % (manual) 7 (0-12); Myelocytes % 6; Platelet Estimate Adequate
[2023-04-05] MEDS: CALCIUM ACETATE 667 MG CAP PO SCH ×3 (08:48→18:26)
[2023-04-05 08:58] VITALS: BP 105/75; PULSE 104; RESP 20; TEMP 99; O2SAT 94
[2023-04-05] MEDS: SODIUM FERR GLUC 62.5MG/5ML 125 MG in SODIUM CHL 0.9% 100 ML IV SCH (12:10)
[2023-04-05 12:35] VITALS: BP 134/70; PULSE 116; RESP 20; TEMP 98.1; O2SAT 95
[2023-04-05 17:09] VITALS: BP 140/83; PULSE 106; RESP 21; TEMP 98.8; O2SAT 96
[2023-04-05] MEDS: TAMSULOSIN HYDROCHLORIDE 0.4 MG CAP PO SCH (18:26)
[2023-04-05 20:00] VITALS: PULSE 75; RESP 18; O2SAT 92
[2023-04-05 22:00] VITALS: BP 146/85; PULSE 110; RESP 19; TEMP 100.1; O2SAT 97
[2023-04-05] MEDS: HYDROcodone-ACET 5/325MG TAB PO PRN (22:33)
[2023-04-06] VITALS (7 sets, daily range): BP systolic 119–148; BP diastolic 57–83; PULSE 90–114; RESP 18–20; TEMP 98.4–98.9; O2SAT 95–98
[2023-04-06 05:57] LABS: Hematocrit 26.2 % (41.0-53.0); Hemoglobin 8.6 g/dL (13.5-17.5); Mean Corpuscular Hemoglobin 31.4 pg (28.0-32.0); Mean Corpuscular Hgb Conc. 32.7 g/dL (32.0-36.0); Mean Corpuscular Volume 95.9 fL (80.0-100.0); Red Blood Cells 2.73 10^6/uL (4.5-5.90); White Blood Cell 5.6 10^3/uL (4.4-10.8)
[2023-04-06 06:18] LABS: Alanine Aminotransferase 26 U/L (7-40); Albumin 3.7 g/dL (3.2-4.8); Alkaline Phosphatase 205 U/L (46-116); Anion Gap 10 (5-15); Aspartate Aminotransferase 38 U/L (13-40); BUN/Creatinine Ratio 9.5 (10.0-20.0); Blood Urea Nitrogen 56 mg/dL (9-23); Calcium 8.1 mg/dL (8.7-10.4); Carbon Dioxide 22 mmol/L (20-30); Chloride 105 mmol/L (98-107); Glucose 83 mg/dL (74-106); Potassium 4.7 mmol/L (3.5-5.1); Sodium 137 mmol/L (136-145)
[2023-04-06 06:19] LABS: Bilirubin, Total 0.3 mg/dL (0.2-1.0); Total Protein 6.6 g/dL (5.7-8.2)
[2023-04-06 06:49] LABS: Red Cell Distribution Width 21.3 % (11.8-14.3)
[2023-04-06 06:51] LABS: Basophils % (manual) 0 (0.0-2.0); Blast Cells 0; Metamyelocytes % 0; Myelocytes % 0; Promyelocytes % 0
[2023-04-06] MEDS ORDERED: SODIUM CHL 0.9% 1000 ML BAG XX ONE (07:00)
[2023-04-06 08:34] LABS: Band Neutrophils % (manual) 1; Eosinophils % (manual) 4 (0-7); Lymphocytes % (manual) 32 (10.0-50.0); Monocytes % (manual) 22 (0-12); Reactive Lymphocytes 1
[2023-04-06 08:35] LABS: Anisocytosis Slight; Platelet Estimate Adequate; Tear Drop Cells FEW
[2023-04-06] MEDS: CALCIUM ACETATE 667 MG CAP PO SCH ×3 (09:07→18:08)
[2023-04-06] MEDS: TAMSULOSIN HYDROCHLORIDE 0.4 MG CAP PO SCH (18:08)
[2023-04-06] MEDS ORDERED: EPOETIN ALFA-EPBX 4,000 UNIT/ML VIAL SC ONE (21:00)
[2023-04-07] VITALS (7 sets, daily range): BP systolic 122–139; BP diastolic 65–79; PULSE 89–100; RESP 12–19; TEMP 98–98.3; O2SAT 93–99
[2023-04-07 05:59] LABS: Basophils # (auto) 0.1 10 ^3/uL (0-0.2); Basophils % (auto) 0.9 % (0.0-2.0); Eosinophils # (auto) 0.2 10 ^3/uL (0-0.8); Hemoglobin 8.2 g/dL (13.5-17.5); Monocytes # (auto) 1.3 10 ^3/uL (0-1.3); Red Blood Cells 2.61 10^6/uL (4.5-5.90)
[2023-04-07 06:03] LABS: Alanine Aminotransferase 24 U/L (7-40); Albumin 3.6 g/dL (3.2-4.8); Alkaline Phosphatase 189 U/L (46-116); Anion Gap 9 (5-15); Aspartate Aminotransferase 36 U/L (13-40); BUN/Creatinine Ratio 7.7 (10.0-20.0); Bilirubin, Total 0.2 mg/dL (0.2-1.0); Calcium 8.1 mg/dL (8.7-10.4); Carbon Dioxide 25 mmol/L (20-30); Chloride 105 mmol/L (98-107); Eosinophils % (auto) 2.7 % (0.0-7.0); Glucose 93 mg/dL (74-106); Hematocrit 24.6 % (41.0-53.0); Lymphocytes # (auto) 1.7 10 ^3/uL (0.4-5.4); Lymphocytes % (auto) 23.1 % (10.0-50.0); Mean Corpuscular Hemoglobin 31.4 pg (28.0-32.0); Mean Corpuscular Hgb Conc. 33.2 g/dL (32.0-36.0); Mean Corpuscular Volume 94.5 fL (80.0-100.0); Monocytes % (auto) 17.4 % (0.0-12.0); Neutrophils % (auto) 55.9 % (37.0-80.0); Nucleated Red Blood Cells % 0.1 %; Potassium 4.2 mmol/L (3.5-5.1); Sodium 139 mmol/L (136-145); Total Protein 6.4 g/dL (5.7-8.2); White Blood Cell 7.2 10^3/uL (4.4-10.8)
[2023-04-07 06:09] LABS: Red Cell Distribution Width 20.6 % (11.8-14.3)
[2023-04-07 06:21] LABS: Blood Urea Nitrogen 32 mg/dL (9-23)
[2023-04-07] MEDS: CALCIUM ACETATE 667 MG CAP PO SCH ×3 (10:02→17:31)
[2023-04-07] MEDS: HYDROcodone-ACET 5/325MG TAB PO PRN (11:34)
[2023-04-07] MEDS: TAMSULOSIN HYDROCHLORIDE 0.4 MG CAP PO SCH (17:31)
[2023-04-08] VITALS (8 sets, daily range): BP systolic 121–157; BP diastolic 60–93; PULSE 82–95; RESP 16–20; TEMP 97.4–98.3; O2SAT 94–99
[2023-04-08] MEDS: CALCIUM ACETATE 667 MG CAP PO SCH ×3 (08:31→18:24)
[2023-04-08] MEDS: TAMSULOSIN HYDROCHLORIDE 0.4 MG CAP PO SCH (18:24)
[2023-04-09 05:00] VITALS: BP 142/75; PULSE 93; RESP 18; TEMP 98; O2SAT 97
[2023-04-09] MEDS: CALCIUM ACETATE 667 MG CAP PO SCH ×3 (08:22→17:56)
[2023-04-09 08:34] VITALS: BP 133/84; PULSE 87; RESP 17; TEMP 98; O2SAT 97
[2023-04-09 12:59] VITALS: BP 159/89; PULSE 89; RESP 17; TEMP 98.1; O2SAT 99
[2023-04-09 13:22] LABS: Chloride 107 mmol/L (98-107); Potassium 4.7 mmol/L (3.5-5.1); Sodium 140 mmol/L (136-145)
[2023-04-09 13:23] LABS: Anion Gap 8 (5-15); Calcium 8.1 mg/dL (8.5-10.1); Carbon Dioxide 25 mmol/L (20-30)
[2023-04-09 13:28] LABS: BUN/Creatinine Ratio 8.8 (10.0-20.0); Blood Urea Nitrogen 53 mg/dL (9-23); Glucose 106 mg/dL (74-106)
[2023-04-09 17:11] VITALS: BP 150/81; PULSE 85; RESP 17; TEMP 98.6; O2SAT 100
[2023-04-09] MEDS: TAMSULOSIN HYDROCHLORIDE 0.4 MG CAP PO SCH (17:56)
[2023-04-09 20:00] VITALS: PULSE 89; RESP 20
[2023-04-09 22:00] VITALS: BP 151/88; PULSE 89; RESP 20; TEMP 98.4; O2SAT 97
[2023-04-10] VITALS (7 sets, daily range): BP systolic 133–147; BP diastolic 77–97; PULSE 79–95; RESP 17–19; TEMP 98.3–98.6; O2SAT 97–98
[2023-04-10 06:54] LABS: Basophils # (auto) 0.1 10 ^3/uL (0-0.2); Basophils % (auto) 0.6 % (0.0-2.0); Eosinophils # (auto) 0.4 10 ^3/uL (0-0.8); Eosinophils % (auto) 4.1 % (0.0-7.0); Hematocrit 26.5 % (41.0-53.0); Hemoglobin 8.6 g/dL (13.5-17.5); Lymphocytes # (auto) 2.9 10 ^3/uL (0.4-5.4); Lymphocytes % (auto) 30.5 % (10.0-50.0); Mean Corpuscular Hemoglobin 31.7 pg (28.0-32.0); Mean Corpuscular Hgb Conc. 32.2 g/dL (32.0-36.0); Mean Corpuscular Volume 98.3 fL (80.0-100.0); Monocytes # (auto) 1.1 10 ^3/uL (0-1.3); Neutrophils # (auto) 5.2 10 ^3/uL (1.6-8.6); Neutrophils % (auto) 53.8 % (37.0-80.0); White Blood Cell 9.6 10^3/uL (4.4-10.8)
[2023-04-10 06:57] LABS: Red Cell Distribution Width 21.3 % (11.8-14.3)
[2023-04-10] MEDS ORDERED: SODIUM CHL 0.9% 1000 ML BAG XX ONE (07:00)
[2023-04-10 07:01] LABS: Chloride 110 mmol/L (98-107); Sodium 140 mmol/L (136-145)
[2023-04-10 07:02] LABS: Anion Gap 8 (5-15); Carbon Dioxide 22 mmol/L (20-30)
[2023-04-10 07:03] LABS: Calcium 8.1 mg/dL (8.5-10.1)
[2023-04-10 07:07] LABS: Glucose 81 mg/dL (74-106)
[2023-04-10 07:08] LABS: BUN/Creatinine Ratio 9.8 (10.0-20.0)
[2023-04-10 07:16] LABS: Blood Urea Nitrogen 63 mg/dL (9-23)
[2023-04-10] MEDS: CALCIUM ACETATE 667 MG CAP PO SCH ×3 (08:00→17:22)
[2023-04-10] MEDS ORDERED: CALC10TA PO (13:10)
[2023-04-10] MEDS ORDERED: TAMS-35 PO (13:10)
[2023-04-10] MEDS: TAMSULOSIN HYDROCHLORIDE 0.4 MG CAP PO SCH (17:22)
[2023-04-10] MEDS ORDERED: EPOETIN ALFA-EPBX 10,000 UNIT/1ML VIAL SC ONE (21:00)
[2023-04-11 05:00] VITALS: BP 140/85; PULSE 90; RESP 18; TEMP 98.6; O2SAT 97
[2023-04-11 08:00] VITALS: PULSE 83; RESP 15; O2SAT 97
[2023-04-11] MEDS: CALCIUM ACETATE 667 MG CAP PO SCH ×3 (09:07→17:25)
[2023-04-11 11:53] LABS: Anion Gap 7 (5-15); Carbon Dioxide 28 mmol/L (20-30); Chloride 105 mmol/L (98-107); Potassium 4.3 mmol/L (3.5-5.1); Sodium 140 mmol/L (136-145)
[2023-04-11 11:54] LABS: Calcium 8.5 mg/dL (8.5-10.1)
[2023-04-11 11:59] LABS: BUN/Creatinine Ratio 9.1 (10.0-20.0); Glucose 82 mg/dL (74-106)
[2023-04-11 12:15] LABS: Blood Urea Nitrogen 45 mg/dL (9-23)
[2023-04-11 12:43] VITALS: BP 153/90; PULSE 86; RESP 18; TEMP 98.1; O2SAT 98
[2023-04-11 16:48] VITALS: BP 136/81; PULSE 100; RESP 17; TEMP 98.2; O2SAT 96
[2023-04-11] MEDS: TAMSULOSIN HYDROCHLORIDE 0.4 MG CAP PO SCH (17:25)
[2023-04-11 18:30] VITALS: BP 136/81; PULSE 100; RESP 17; TEMP 98.2; O2SAT 96
== END 2023-04-11 21:00 | disposition home or self-care (01) | DRG 720 ==
LOC: ER 11:13 → OVERFLOW 15:56 → WEST WING 03-22 03:35
PROVIDERS: ADMIT Nurse Practitioner Family; ATTEND Family Medicine
PROC: 0T9430Z Drainage of Left Kidney Pelvis with Drainage Device, Percutaneous Approach (ICD-10-PCS; principal; 2023-03-25)
PROC: 0T9330Z Drainage of Right Kidney Pelvis with Drainage Device, Percutaneous Approach (ICD-10-PCS; 2023-03-25)
PROC: 5A1D70Z Performance of Urinary Filtration, Intermittent, Less than 6 Hours Per Day (ICD-10-PCS; 2023-04-04)
PROC: 5A1D70Z Performance of Urinary Filtration, Intermittent, Less than 6 Hours Per Day (ICD-10-PCS; 2023-04-06)
PROC: 5A1D70Z Performance of Urinary Filtration, Intermittent, Less than 6 Hours Per Day (ICD-10-PCS; 2023-04-10)
DX: A41.9 Sepsis, unspecified organism (principal); N17.0 Acute kidney failure with tubular necrosis; E87.20 Acidosis, unspecified; E83.39 Other disorders of phosphorus metabolism; C67.9 Malignant neoplasm of bladder, unspecified; D64.9 Anemia, unspecified; I12.0 Hypertensive chronic kidney disease with stage 5 chronic kidney disease or end stage renal disease; N18.6 End stage renal disease; N13.6 Pyonephrosis; N17.9 Acute kidney failure, unspecified; R74.01 Elevation of levels of liver transaminase levels; R79.89 Other specified abnormal findings of blood chemistry; F15.10 Other stimulant abuse, uncomplicated; N40.1 Benign prostatic hyperplasia with lower urinary tract symptoms; R33.8 Other retention of urine; N13.8 Other obstructive and reflux uropathy; F17.200 Nicotine dependence, unspecified, uncomplicated; Z59.01 Sheltered homelessness; Z99.2 Dependence on renal dialysis
CPT/HCPCS: 36415; 50432; 71045; 74176; 74425; 76775; 76937; 76942; 78707; 80048; 80053; 80074; 80307; 81001; 82306; 82570; 83540; 83550; 83605; 83690; 83735; 83970; 84100; 84154; 84300; 84484; 85007; 85025; 85027; 85610; 85730; 86803; 86850; 86900; 86901; 87040; 87086; 87340; 90935; 93005; 99152; 99153; 99291; C1894; G0378; J1642; J1756; J2250

== ENCOUNTER 2024-07-03 08:44 | Inpatient (IN) | payer MEDICAID ==
[~2024-07-03] VITALS: Ht 177.8 cm; Wt 75.2 kg
[~2024-07-03 08:44] MED LIST: BACL10TA PO; CALC10TA PO; CLON0.1T PO; DOXE25CA2 PO; DULO60CA41 PO; FAMO-12 PO; GABA-1250 PO; KEP500T PO; TAMS-35 PO
--- NOTE | 2024-07-03 09:02 | ED.PDOC ---
General HPI Comments 58Y M with PMHx bilateral nephrostomy tube placement presents to ED for chief complaint abd burning sensation. Pt states he was seen at a hospital in [place] and was told he has bacteria in his bladder wall "with a bubble". Pt reports leaving that hospital and coming to [facility] for better care. No other symptoms reported. Chief Complaint: Urinary Time Seen by MD: 08:50 Reviewed notes: Nurses Notes, Medications, Allergies Allergies: Coded Allergies: NO KNOWN ALLERGIES (Unverified , 03/21/23) Home Meds Active Scripts Tamsulosin Hcl (Flomax) 0.4 Mg Cap, 1 CAP PO DAILY, #30 CAP 11 Refills Prov:MAMIE VALERIO MD 04/10/23 Calcium Acetate (CALCIUM ACETATE) 667 Mg Tab, 667 MG PO TID, #180 TAB Prov:MAMIE VALERIO MD 04/10/23 Reported Medications Famotidine (Famotidine) 20 Mg Tab, 40 MG PO BID for 30 Days 03/25/23 Baclofen (Baclofen) 10 Mg Tab, 10 MG PO TIDP, % 03/25/23 Levetiracetam (KEPPRA TABLET) 500 Mg Tb, 500 MG PO BID, TAB 03/25/23 Doxepin Hcl (Doxepin Hcl) 25 Mg Cap, 50 MG PO HSPRN, CAP 03/25/23 Gabapentin (Gabapentin) 300 Mg Cap, 300 MG PO TID 03/25/23 Clonidine Hydrochloride (Clonidine Hcl) 0.1 Mg Tab, 0.1 MG PO TIDP 03/25/23 Duloxetine Hcl (Cymbalta) 60 Mg Cap, 60 MG PO DAILY, CAP 03/25/23 Information Source: Patient Mode of Arrival: Ambulatory Severity: Mild Inability to void: None Timing: Days Duration: Since onset Prehospital treatment: None Onset: Spontaneous Symptoms: None History of: Other Location: Abdomen Penile discharge: None Modifying factors: None associated signs and symptoms: Other Past Medical History PAST MEDICAL HISTORY: Denies Surgical History: Denies all surgeries Family History Family History: Unknown Social History Smoker: Non-Smoker Alcohol: Denies ETOH Use Drugs: Methamphetamine Lives In: Home Constitutional: denies: chills, diaphoresis, fatigue, fever, malaise, sweats, weakness, others EENTM: denies: blurred vision, double vision, ear bleeding, ear discharge, ear drainage, ear pain, ear ringing, eye pain, eye redness, hearing loss, mouth pain, mouth swelling, nasal discharge, nose bleeding, nose congestion, nose jarrod n, photophobia, tearing, throat pain, throat swelling, voice changes, others Respiratory: denies: cough, hemoptysis, orthopnea, SOB at rest, shortness of breath, SOB with excertion, stridor, wheezing, others Cardiovascular: denies: chest pain, dizzy spells, diaphoresis, Dyspnea on exertion, edema, irregular heart beat, left arm pain, lightheadedness, palpitations, PND, syncope, others Gastrointestinal: reports: others (abd burning sensation); denies: abdomen distended, abdominal pain, blood streaked bowels, constipated, diarrhea, dysphagia, difficulty swallowing, hematemesis, melena, nausea, poor appetite, poor fluid intake, rectal bleeding, rectal pain, vomiting Genitourinary: denies: burning, dysuria, flank pain, frequency, hematuria, incontinence, penile discharge, penile sore, pain, testicle pain, testicle swelling, urgency, others Neurological: denies: dizziness, fainting, headache, left sided numbness, left sided weakness, numbness, paresthesia, pre-existing deficit, right sided numbness, right sided weakness, seizure, speech problems, tingling, tremors, weakness, others Musculoskeletal: denies: back pain, gout, joint pain, joint swelling, muscle pain, muscle stiffness, neck pain, others Integumetry: denies: bruises, change in color, change in hair/nails, dryness, laceration, lesions, lumps, rash, wounds, others Allergic/Immunocompromised: denies: Difficulty Healing, Frequent Infections, Hives, Itching, others Hematologic/Lymphatic: denies: anemia, blood clots, easy bleeding, easy bruising, swollen glands, others Endocrine: denies: excessive hunger, excessive sweating, excessive thirst, excessive urination, flushing, intolerance to cold, intolerance to heat, unexplained weight gain, unexplained weight loss, others Psychiatric: denies: anxiety, bipolar disorder, depression, hopeless, panic disorder, schizophrenia, sleepless, suicidal, others All Other Systems: Reviewed and Negative Physical Exam General Appearance: No Apparent Distress, Normal HEENT: Normal ENT Inspection, Pharynx Normal, TMs Normal Neck: Full Range of Motion, Non-Tender, Normal, Normal Inspection Respiratory: Chest Non-Tender, Lungs Clear, No Accessory Muscle Use, No Respiratory Distress, Normal Breath Sounds Cardiovascular: No Edema, No Murmur, No Gallop, Normal Peripheral Pulses, Regular Rate/Rhythm Breast Exam: Deferred Gastrointestinal: Hernia (reducible umbilical hernia), No Organomegaly, Non Tender, Normal Bowel Sounds, Soft, Other (bilateral nephrostomy tubes in place) Genitalia: Deferred Pelvic: Deferred Rectal: Deferred Extremities: No calf tenderness, Normal capillary refill, Normal inspection, Normal range of motion, Non-tender Musculoskeletal : Apperance: Normal Neurologic: Alert, vice president of talent management II-XII nml as Tested, No Motor Deficits, Normal Affect, Normal Mood, No Sensory Deficits Cerebellar Function: NOT DONE Reflexes: NOT DONE Skin: Dry, Normal Color, Warm Lymphatic: No Adenopathy Was a procedure done? Was a procedure done?: No Differential Diagnosis Kidney stone (Female): N/A Urinary Problem (Female): N/A X-Ray, Labs, Meds, VS Vital Signs Date Time Temp Pulse Resp B/P (MAP) Pulse Ox O2 Delivery O2 Flow Rate FiO2 07/03/24 10:41 107 07/03/24 09:30 97.8 104 16 161/101 (121) 97 97.8 07/03/24 09:30 104 16 97 Room Air* 0 21 07/03/24 09:00 99.6 113 16 168/98 (121) 100 99.6 Lab Test 07/03/24 11:00 07/03/24 09:43 Range/Units Troponin I High Sensitivity Pending 261 *H </=54 ng/L White Blood Count 6.4 4.4-10.8 10^3/uL Red Blood Count 3.62 L 4.5-5.90 10^6/uL Hemoglobin 11.7 L 13.5-17.5 g/dL Hematocrit 34.4 L 41.0-53.0 % Mean Corpuscular Volume 95.1 80.0-100.0 fL Mean Corpuscular Hemoglobin 32.3 H 28.0-32.0 pg Mean Corpuscular Hemoglobin Concent 33.9 32.0-36.0 g/dL Red Cell Distribution Width 15.4 H 11.8-14.3 % Platelet Count 200 140-450 10^3/uL Mean Platelet Volume 9.1 6.9-10.8 fL Neutrophils (%) (Auto) 66.5 37.0-80.0 % Lymphocytes (%) (Auto) 19.2 10.0-50.0 % Monocytes (%) (Auto) 9.8 0.0-12.0 % Eosinophils (%) (Auto) 4.1 0.0-7.0 % Basophils (%) (Auto) 0.4 0.0-2.0 % Neutrophils # (Auto) 4.3 1.6-8.6 10 ^3/uL Lymphocytes # (Auto) 1.2 0.4-5.4 10 ^3/uL Monocytes # (Auto) 0.6 0-1.3 10 ^3/uL Eosinophils # (Auto) 0.3 0-0.8 10 ^3/uL Basophils # (Auto) 0 0-0.2 10 ^3/uL Nucleated Red Blood Cells 0.1 % Sodium Level 145 136-145 mmol/L Potassium Level 4.3 3.5-5.1 mmol/L Chloride Level 116 H 98-107 mmol/L Carbon Dioxide Level 17 L 20-31 mmol/L Anion Gap 12 5-15 Blood Urea Nitrogen 101 *H 9-23 mg/dL Creatinine 5.28 H 0.700-1.30 mg/dL Glomerular Filtration Rate Calc 12 >90 mL/min BUN/Creatinine Ratio 19.1 10.0-20.0 Serum Glucose 97 74-106 mg/dL Calcium Level 7.9 L 8.7-10.4 mg/dL Total Bilirubin 0.7 0.2-1.0 mg/dL Aspartate Amino Transferase (AST) 32 13-40 U/L Alanine Aminotransferase (ALT) 59 H 7-40 U/L Alkaline Phosphatase 190 H 46-116 U/L Total Protein 6.3 5.7-8.2 g/dL Albumin 4.1 3.2-4.8 g/dL X-Ray, Labs, Meds, VS Comment This 58-year-old male presents emergency room secondary to abdominal pain. He had complained of epigastric burning sensation. He states he was seen at outside hospital recently was told he has a stone symptoms gallbladder. Patient was also noted to have bilateral nephrostomy tubes. He denies such he was headaches, chest pain, flank pain, shortness of breath, fever, chills, sweats, nausea or vomiting. Denies any palliative provocative factors. Denies modifying factors. Troponins ordered secondary to his epigastric burning sensation. This was positive. His EKG shows sinus tachycardia, left atrial enlargement right axis deviation. There is no ST elevation depression. However, secondary to his profoundly elevated troponin and burning sensation, mid him for further workup management of his NSTEMI. Additionally, he was noted to have a GFR 12. Patient has a history of dialysis been been off dialysis for 1 year. Time of 1ST Reevaluation: 09:20 Reevaluation 1ST: Unchanged Patient Education/Counseling: Diagnosis, Treatment Family Education/Counseling: No Family Present Departure 1 Departure Time of Disposition: 10:51 Impression: Primary Impression: NSTEMI (non-ST elevated myocardial infarction) Additional Impressions: Abdominal pain Acute renal failure Disposition: ADMITTED INPATIENT Admit to: [facility] Condition: Serious Critical Care Note Critical Care Time?: No Stability Stability form required: No Heart Score Heart Score: Heart Score Response (Comments) Value History Slightly Suspicious 0 EKG Repolarization Disturb 1 Age 45-64 1 Risk Factors 1 or 2 risk factors 1 Troponin >3 x's Normal limit 2 Total 5 I personally scribed for MAURO MALAGON MD ([email or web address]) on 07/03/24 at 09:02. Electronically submitted by Lucila Ayoub ([email or web address]). MAURO MALAGON MD Jul 03, 2024 09:02
[2024-07-03 09:30] VITALS: PULSE 104; RESP 16; O2SAT 97
[2024-07-03 10:03] LABS: Basophils # (auto) 0 10 ^3/uL (0-0.2); Basophils % (auto) 0.4 % (0.0-2.0); Eosinophils # (auto) 0.3 10 ^3/uL (0-0.8); Eosinophils % (auto) 4.1 % (0.0-7.0); Hematocrit 34.4 % (41.0-53.0); Hemoglobin 11.7 g/dL (13.5-17.5); Lymphocytes # (auto) 1.2 10 ^3/uL (0.4-5.4); Lymphocytes % (auto) 19.2 % (10.0-50.0); Mean Corpuscular Hemoglobin 32.3 pg (28.0-32.0); Mean Corpuscular Hgb Conc. 33.9 g/dL (32.0-36.0); Mean Corpuscular Volume 95.1 fL (80.0-100.0); Monocytes # (auto) 0.6 10 ^3/uL (0-1.3); Monocytes % (auto) 9.8 % (0.0-12.0); Neutrophils # (auto) 4.3 10 ^3/uL (1.6-8.6); Neutrophils % (auto) 66.5 % (37.0-80.0); Nucleated Red Blood Cells % 0.1 %; Platelet Count (auto) 200 10^3/uL (140-450); Red Blood Cells 3.62 10^6/uL (4.5-5.90); Red Cell Distribution Width 15.4 % (11.8-14.3); White Blood Cell 6.4 10^3/uL (4.4-10.8)
[2024-07-03 10:20] LABS: Albumin 4.1 g/dL (3.2-4.8); Anion Gap 12 (5-15); Aspartate Aminotransferase 32 U/L (13-40); BUN/Creatinine Ratio 19.1 (10.0-20.0); Bilirubin, Total 0.7 mg/dL (0.2-1.0); Glucose 97 mg/dL (74-106); Potassium 4.3 mmol/L (3.5-5.1); Sodium 145 mmol/L (136-145); Total Protein 6.3 g/dL (5.7-8.2)
[2024-07-03 10:23] LABS: Carbon Dioxide 17 mmol/L (20-31); Chloride 116 mmol/L (98-107)
[2024-07-03 10:24] LABS: Alanine Aminotransferase 59 U/L (7-40); Alkaline Phosphatase 190 U/L (46-116); Blood Urea Nitrogen 101 mg/dL (9-23); Calcium 7.9 mg/dL (8.7-10.4)
--- NOTE | 2024-07-03 10:58 | DVH ---
INDICATION: cough TECHNIQUE: Frontal view of the chest. COMPARISON: XY CHEST XRAY 1 VIEW on DOS: 04/03/23 FINDINGS: Right hemodialysis catheter tip in the CA junction. The heart and mediastinal contours are grossly un remarkable. Small right pleural effusion. The bony structures of the chest are intact without fra cture. IMPRESSION: 1. Small right pleural effusion.
--- NOTE | 2024-07-03 10:58 | DVH ---
CT ABDOMEN AND PELVIS WITHOUT CONTRAST CLINICAL HISTORY: ABD PAIN TECHNIQUE: Multiple contiguous axial images of the abdomen and pelvis without intravenous contrast. T he images were reformatted degenerate coronal and sagittal reconstructions. All CT scans at this medical facility are performed using dose modulation techniques as appropriate t o a performed exam including the following:Automated exposure control was utilized; adjustment of the MA and/or KV according to patient size; and use of iterative reconstruction technique. Radiation Dose Information: CT Dose: CTDI volume is 6 mGy. Dose-length product is 280 mGy*cm Comparison: CT CT AB PEL WO CON-NO ORAL OR IV on DOS: 03/21/23 FINDINGS: Evaluation of the abdomen and pelvis is limited without intravenous contrast. There are bilateral nephrostomy tubes with the distal pigtail loops in the right and left renal pelvi s. There is no significant hydronephrosis. There is no evidence of nephrolithiasis. There is a contracted gallbladder without obvious radiopaque gallstone. The liver, pancreas, adrenal glands, and spleen appear within normal limits. There are mildly prominent size retroperitoneal lymph nodes along the abdominal aorta and IVC measuri ng up to 1 cm in the short axis.. There is no free fluid or free air. The stomach grossly appears unremarkable. The small and large bowel loops demonstrate normal caliber and distribution. A normal appearing appendix is seen in the right lower quadrant abdomen. The abdominal aorta and IVC appear within normal limits. There is marked prostatomegaly. Bladder demonstrates circumferential wall thickening. There is no kena dence of a pelvic mass or fluid collection. There is a large fat containing right bochdalek hernia. There is small right pleural effusion with at electasis in the right lung base. There is also scarring versus atelectasis in the left lung base. Th ere is cardiomegaly with small pericardial effusion. There is no acute osseous abnormality. IMPRESSION: 1. There are bilateral nephrostomy tubes in place. There is no evidence of hydronephrosis or nephroli thiasis. 2. Marked prostatomegaly with circumferential bladder wall thickening which May relate to chronic out let obstruction. Clinical correlation is recommended. 3. Nonspecific mildly prominent retroperitoneal lymph nodes. Metastatic lymphadenopathy is not exclud ed. 4. Small right pleural effusion with atelectasis in the right lung base. 5. Additional findings as noted above. HS:Y
[2024-07-03 11:56] LABS: Urine Bacteria FEW /hpf (None Seen); Urine Blood 1+ /uL (Negative); Urine Clarity Turbid (Clear); Urine Color Colorless (Yellow); Urine Protein, UAD 2+ (Negative); Urine Specific Gravity 1.009 (1.001-1.035); Urine Squamous Epithelial Cell None Seen /hpf (<5); Urine Urobilinogen Normal (Negative); Urine WBC 818 /HPF (0-3); Urine WBC Clumps PRESENT /hpf (None Seen)
--- NOTE | 2024-07-03 16:13 | DVH ---
Date: 07/03/2024 03:56 PM Examination: XY KUB ABDOMEN SINGLE VIEW History: rule out obstruction Comparison: None TECHNIQUE: Single frontal view of the abdomen was obtained FINDINGS: There are 2 pigtail catheters projecting over the upper abdomen. There is a large amount of stool in the splenic flexure proximal transverse colon. Bowel gas pattern in the proximal jejunum is consisten t with a small-bowel ileus no evidence for obstruction. There is gas and stool in the rectum Bones are unremarkable except for degenerative changes. IMPRESSION: 1. Possible small bowel ileus proximal small bowel. No evidence for obstruction 1.
[2024-07-03] MEDS: cefTRIAXone 1GM/50ML D5W 50 ML IV SCH (16:19)
[2024-07-03] MEDS: SODIUM CHLORIDE 0.9% 1,000 ML IV SCH (16:42)
[2024-07-03 17:32] VITALS: BP 146/93; PULSE 91; RESP 16; TEMP 98.3; O2SAT 96
--- NOTE | 2024-07-03 18:16 | DVHINCON2 ---
Date of service: Jul 03, [address] Bowers Reason for Consultation Chronic kidney disease History of Present Illness 58-year-old male with known chronic kidney disease stage five due to BPH and bilateral obstructive hydronephrosis with bilateral nephrostomy tubes. Patient was started on hemodialysis in 2022 locally however patient transferred his medical care to [facility] and reports that dialysis was stopped due to gain of function in 2023. He reports that he has not had a dialysis treatment for nearly a year however he did not seek medical follow-up and has the original tunneled hemodialysis catheter in place. Patient also reports the last time he had his bilateral nephrostomy tubes replaced was in December of 2023. Patient now has moved from [place] to the [facility] in his here to establish care. He reports he noticed that the urine output from his nephrostomy tubes was slightly cloudy and had an abnormal smell. At presentation in the ER is noted to have a BUN greater than 100 and a creatinine greater than five. Past Medical History BPH PCNT 2022 HD w/ tunnel catheter Allergies: Coded Allergies: NO KNOWN ALLERGIES (Unverified , 03/21/23) Home Meds Active Scripts Tamsulosin Hcl (Flomax) 0.4 Mg Cap, 1 CAP PO DAILY, #30 CAP 11 Refills Prov:MAMIE VALERIO MD 04/10/23 Calcium Acetate (CALCIUM ACETATE) 667 Mg Tab, 667 MG PO TID, #180 TAB Prov:MAMIE VALERIO MD 04/10/23 Reported Medications Famotidine (Famotidine) 20 Mg Tab, 40 MG PO BID for 30 Days 03/25/23 Baclofen (Baclofen) 10 Mg Tab, 10 MG PO TIDP, % 03/25/23 Levetiracetam (KEPPRA TABLET) 500 Mg Tb, 500 MG PO BID, TAB 03/25/23 Doxepin Hcl (Doxepin Hcl) 25 Mg Cap, 50 MG PO HSPRN, CAP 03/25/23 Gabapentin (Gabapentin) 300 Mg Cap, 300 MG PO TID 03/25/23 Clonidine Hydrochloride (Clonidine Hcl) 0.1 Mg Tab, 0.1 MG PO TIDP 03/25/23 Duloxetine Hcl (Cymbalta) 60 Mg Cap, 60 MG PO DAILY, CAP 03/25/23 Current Medications Current Medications Medications (Trade) Dose Ordered Sig/Vj Route PRN Reason Start Time Stop Time Status Last Admin Ceftriaxone Sodium 50 ml @ 100 mls/hr DAILY@09 IV 07/03/24 16:10 07/03/24 16:19 Sodium Chloride 1,000 ml @ 100 mls/hr Q10H IV 07/03/24 16:15 07/03/24 16:42 Family History: Patient reports no known family medical history. Review of Systems Foul-smelling urine H&P Exam Vital Signs/I&O Vital Sign Date Time Temp Pulse Resp B/P (MAP) Pulse Ox O2 Delivery O2 Flow Rate FiO2 07/03/24 17:32 98.3 91 16 146/93 (110) 96 98.3 07/03/24 09:30 Room Air* 0 21 Physical Exam Elderly male Appears slightly malnourished Nonacute distress Abdomen is soft No pitting edema Old right tunneled hemodialysis catheter with evidence of clotted blood in old unclean dressing Bilateral nephrostomy tubes with yellow urine Regular rate and rhythm Labs/Diagnostic Data Labs/Diagnostic Data Laboratory Tests Test 07/03/24 12:56 07/03/24 11:15 07/03/24 11:00 07/03/24 09:43 Range/Units Troponin I High Sensitivity 267 *H 245 *H 261 *H </=54 ng/L Urine Color Colorless Yellow Urine Clarity Turbid H Clear Urine pH 6.0 5.0-9.0 Urine Specific [place] 1.009 1.001-1.035 Urine Protein 2+ H Negative Urine Ketones Negative Negative Urine Blood 1+ H Negative /uL Urine Nitrite Negative Negative Urine Bilirubin Negative Negative Urine Urobilinogen Normal Negative mg/dL Urine Leukocyte Esterase 3+ Negative /uL Urine RBC 7 0 - 3 /hpf Urine WBC Clumps Present None Seen /hpf Urine Microscopic WBC 818 H 0-3 /HPF Urine Squamous Epithelial Cells None seen <5 /hpf Urine Bacteria Few H None Seen /hpf Urine Glucose Normal Normal mg/dL White Blood Count 6.4 4.4-10.8 10^3/uL Red Blood Count 3.62 L 4.5-5.90 10^6/uL Hemoglobin 11.7 L 13.5-17.5 g/dL Hematocrit 34.4 L 41.0-53.0 % Mean Corpuscular Volume 95.1 80.0-100.0 fL Mean Corpuscular Hemoglobin 32.3 H 28.0-32.0 pg Mean Corpuscular Hemoglobin Concent 33.9 32.0-36.0 g/dL Red Cell Distribution Width 15.4 H 11.8-14.3 % Platelet Count 200 140-450 10^3/uL Mean Platelet Volume 9.1 6.9-10.8 fL Neutrophils (%) (Auto) 66.5 37.0-80.0 % Lymphocytes (%) (Auto) 19.2 10.0-50.0 % Monocytes (%) (Auto) 9.8 0.0-12.0 % Eosinophils (%) (Auto) 4.1 0.0-7.0 % Basophils (%) (Auto) 0.4 0.0-2.0 % Neutrophils # (Auto) 4.3 1.6-8.6 10 ^3/uL Lymphocytes # (Auto) 1.2 0.4-5.4 10 ^3/uL Monocytes # (Auto) 0.6 0-1.3 10 ^3/uL Eosinophils # (Auto) 0.3 0-0.8 10 ^3/uL Basophils # (Auto) 0 0-0.2 10 ^3/uL Nucleated Red Blood Cells 0.1 % Sodium Level 145 136-145 mmol/L Potassium Level 4.3 3.5-5.1 mmol/L Chloride Level 116 H 98-107 mmol/L Carbon Dioxide Level 17 L 20-31 mmol/L Anion Gap 12 5-15 Blood Urea Nitrogen 101 *H 9-23 mg/dL Creatinine 5.28 H 0.700-1.30 mg/dL Glomerular Filtration Rate Calc 12 >90 mL/min BUN/Creatinine Ratio 19.1 10.0-20.0 Serum Glucose 97 74-106 mg/dL Calcium Level 7.9 L 8.7-10.4 mg/dL Total Bilirubin 0.7 0.2-1.0 mg/dL Aspartate Amino Transferase (AST) 32 13-40 U/L Alanine Aminotransferase (ALT) 59 H 7-40 U/L Alkaline Phosphatase 190 H 46-116 U/L Total Protein 6.3 5.7-8.2 g/dL Albumin 4.1 3.2-4.8 g/dL Assessment Acute kidney injury on chronic kidney disease stage 5 Previously on dialysis for advanced kidney disease Chronic urinary obstruction with bilateral nephrostomy tubes Sepsis secondary to urinary tract infection Metabolic acidosis No emergent indication for hemodialysis at this time , we will have ongoing discussion with patient about when to resume dialysis if needed however at this time given patient has significant urinary output there is no emergent i ndication. We will recommend conservative treatment for now and treatment of his infection Patient's current hemodialysis catheter has not been maintained and should have been removed. I recommend obtaining Radiology consult to remove tunneled catheter Resume IV fluids Broad-spectrum antibiotics and culture the urine and blood Recommend services to replace nephrostomy tubes Plan discussed with: Patient LUCINDA ISLAS MD Jul 03, 2024 18:16
[2024-07-03 18:27] VITALS: PULSE 90
--- NOTE | 2024-07-03 19:35 | ECG ---
[facility] Test Date: 2024-07-03 Test Time: 10:41:09 Pat Name: LOTTIE SPEARS Department: ED Room: [facility] Gender: M [employer]: ALYSHA : 1965 Requested By: MAURO MALAGON Order Number: [id number] Reading MD: Berlin Wolfe Measurements Intervals [place] Rate: 107 P: 49 OK: 141 QRS: 122 QRSD: 86 T: 118 QT: 333 QTc: 445 Interpretive Statements Sinus tachycardia Probable left atrial enlargement Right axis deviation Anteroseptal infarct, old Electronically Signed On 07-08-2024 21:08:11 PDT by Berlin Wolfe Please click the below link to view image of tracing.
[2024-07-03 20:00] VITALS: PULSE 88; PULSE 94; RESP 18
[2024-07-03 20:21] LABS: Anion Gap 10 (5-15); Potassium 4.1 mmol/L (3.5-5.1)
[2024-07-03 20:25] LABS: Basophils # (auto) 0 10 ^3/uL (0-0.2); Basophils % (auto) 0.8 % (0.0-2.0); Eosinophils # (auto) 0.2 10 ^3/uL (0-0.8); Eosinophils % (auto) 3.9 % (0.0-7.0); Hematocrit 33.4 % (41.0-53.0); Hemoglobin 11.1 g/dL (13.5-17.5); Lymphocytes % (auto) 19.8 % (10.0-50.0); Mean Corpuscular Hemoglobin 31.4 pg (28.0-32.0); Mean Corpuscular Hgb Conc. 33.3 g/dL (32.0-36.0); Mean Corpuscular Volume 94.3 fL (80.0-100.0); Monocytes # (auto) 0.4 10 ^3/uL (0-1.3); Monocytes % (auto) 8.3 % (0.0-12.0); Neutrophils # (auto) 3.4 10 ^3/uL (1.6-8.6); Neutrophils % (auto) 67.2 % (37.0-80.0); Nucleated Red Blood Cells % 0.1 %; Platelet Count (auto) 179 10^3/uL (140-450); Red Blood Cells 3.54 10^6/uL (4.5-5.90); Red Cell Distribution Width 15.2 % (11.8-14.3); White Blood Cell 5.1 10^3/uL (4.4-10.8)
[2024-07-03 20:27] LABS: BUN/Creatinine Ratio 19.3 (10.0-20.0)
[2024-07-03 20:28] LABS: Calcium 7.9 mg/dL (8.7-10.4); Carbon Dioxide 16 mmol/L (20-31); Chloride 119 mmol/L (98-107); Glucose 115 mg/dL (74-106); Sodium 145 mmol/L (136-145)
[2024-07-03 20:29] LABS: Blood Urea Nitrogen 105 mg/dL (9-23)
[2024-07-03 20:40] LABS: Triglycerides 65 mg/dL (< 150)
[2024-07-03 20:42] LABS: Cholesterol 159 mg/dL (< 200)
[2024-07-03 21:00] VITALS: BP 143/92; PULSE 93; RESP 20; TEMP 97.5; O2SAT 97
[2024-07-03 21:19] LABS: HDL Cholesterol 38 mg/dL (40-59); LDL Cholesterol 107 mg/dL (< 100)
[2024-07-03] MEDS: SODIUM BICARBONATE 650 MG TAB PO SCH (21:58)
--- NOTE | 2024-07-03 22:01 | DVHHPRES ---
History of Present Illness Resident Creating Document: BUNNY LI RESIDENT Reason for Visit: ARIELLE History of Present Illness A 58-year-old male with a complex urologic history (possible bladder cancer) and CKD stage 5 on intermittent hemodialysis who presents with a burning on his abdominal area. He had bilateral percutaneous nephrostomy tubes placed in March 2023 for obstruction and was started on hemodialysis at that time. He subsequently moved his care to [place]; dialysis was stopped in august 2023 after some recovery of renal function. He has not received dialysis for nearly a year and had poor medical follow-up during that time. His nephrostomy tubes were last exchanged in dec 2023; He recently relocated from [place] to the [facility], which interrupted continuity of care. He reports that the nephrostomy output became cloudy and malodorous recently. He urinates via both the nephrostomy tubes and per urethra He was found to have an elevated troponin (peaked in the 200s) without ST elevations on ECG. Laboratory evaluation revealed significantly elevated blood urea nitrogen (BUN 101) and creatinine (5.2), indicating acute kidney injury on chronic kidney disease. Urinalysis showed 3+ leukocyte esterase and heavy pyuria (WBC 818) consistent with a urinary tract infection (UTI). A CT scan of the abdomen/pelvis demonstrated that his bilateral nephrostomy tubes are in place with no evidence of hydronephrosis or nephrolithiasis. Notably, the scan showed marked prostatomegaly with circumferential bladder wall thickening concerning for an underlying tumor, as well as possible enlarged lymph nodes suspicious for metastatic disease (bladder cancer). On arrival, he denied significant chest pain or shortness of breath. His primary symptom was abdominal pain with urinary discomfort. Nephrology (Dr. Devora Gordon) was consulted and assessed that the patient doesn't have emergent indication for HD, patient will need change of nephrostomies and removal of tunneled catheter. Urology was also consulted for evaluation of the bladder mass and management of his nephrostomy tubes. Past Medical History ESRD vs CKD stage V secondary to obstructive uropathy from BPH and probable bladder cancer Obstructive uropathy with bilateral hydronephrosis, status post bilateral percutaneous nephrostomy tubes (placed 03/2023) Possible bladder cancer, under evaluation (bladder wall thickening on imaging): no f/u Benign prostatic hyperplasia (BPH) (long-standing, with marked prostatomegaly on imaging) Hepatitis C (chronic HCV infection) Hypertension (history of elevated BP, on clonidine) Poor dialysis follow-up (history of non-adherence to scheduled dialysis) Seizures? on levetiracetam Review of Systems Review of Systems Constitutional: No fevers or chills reported. States he feels generally fa tigued. Cardiovascular: Denies chest pain, palpitations, or orthopnea. Respiratory: Denies cough or shortness of breath. Gastrointestinal: Denies nausea or vomiting; appetite slightly decreased. Genitourinary: Admits to burning abdominal/flank pain. No new hematuria noted (urine mostly drains via tubes). Neurologic: No headaches, no focal weakness or dizziness. Allergies: Coded Allergies: NO KNOWN ALLERGIES (Unverified , 03/21/23) Medications Current Medications Medications Dose Ordered Sig/Vj Route Start Time Stop Time Status Last Admin Dose Admin Ceftriaxone Sodium 50 ml @ 100 mls/hr DAILY@09 IV 07/03/24 16:10 07/03/24 16:19 100 MLS/HR Sodium Chloride 1,000 ml @ 100 mls/hr Q10H IV 07/03/24 16:15 07/03/24 16:42 100 MLS/HR Sodium Bicarbonate 650 mg TID PO 07/03/24 22:00 Exam Vital Signs Vital Signs Date Time Temp Pulse Resp B/P (MAP) Pulse Ox O2 Delivery O2 Flow Rate FiO2 07/03/24 21:00 97.5 93 20 143/92 (109) 97 97.5 07/03/24 17:32 Room Air* 0 21 Exam General: Alert and oriented. Appears fatigued but in no acute distress. Mild discomfort due to abdominal pain. Chest: tunneled catheter clotted, with dirty dressing Cardiac: Normal S1/S2, regular rhythm. No murmurs, rubs, or gallops. Peripheral pulses intact. Respiratory: Clear to auscultation bilaterally. No wheezes, rales, or rhonchi. Abdomen: Soft, non-distended. Mild tenderness in the suprapubic region. No rebound or guarding. Flank examination reveals well-healing nephrostomy tube sites bilaterally with no erythema or discharge. Bilateral nephrostomy tubes are in place and draining urine into collection bags. The urine in the bags is cloudy in appearance. No costovertebral angle tenderness on percussion. Extremities: No peripheral edema. No clubbing or cyanosis. Neurologic: Alert, oriented 3. No focal neurologic deficits noted. Labs/Xrays Labs Test 07/03/24 19:16 07/03/24 12:56 07/03/24 11:15 07/03/24 09:43 Range/Units White Blood Count 5.1 4.4-10.8 10^3/uL Red Blood Count 3.54 L 4.5-5.90 10^6/uL Hemoglobin 11.1 L 13.5-17.5 g/dL Hematocrit 33.4 L 41.0-53.0 % Mean Corpuscular Volume 94.3 80.0-100.0 fL Mean Corpuscular Hemoglobin 31.4 28.0-32.0 pg Mean Corpuscular Hemoglobin Concent 33.3 32.0-36.0 g/dL Red Cell Distribution Width 15.2 H 11.8-14.3 % Platelet Count 179 140-450 10^3/uL Mean Platelet Volume 9.3 6.9-10.8 fL Neutrophils (%) (Auto) 67.2 37.0-80.0 % Lymphocytes (%) (Auto) 19.8 10.0-50.0 % Monocytes (%) (Auto) 8.3 0.0-12.0 % Eosinophils (%) (Auto) 3.9 0.0-7.0 % Basophils (%) (Auto) 0.8 0.0-2.0 % Neutrophils # (Auto) 3.4 1.6-8.6 10 ^3/uL Lymphocytes # (Auto) 1.0 0.4-5.4 10 ^3/uL Monocytes # (Auto) 0.4 0-1.3 10 ^3/uL Eosinophils # (Auto) 0.2 0-0.8 10 ^3/uL Basophils # (Auto) 0 0-0.2 10 ^3/uL Nucleated Red Blood Cells 0.1 % Sodium Level 145 136-145 mmol/L Potassium Level 4.1 3.5-5.1 mmol/L Chloride Level 119 H 98-107 mmol/L Carbon Dioxide Level 16 L 20-31 mmol/L Anion Gap 10 5-15 Blood Urea Nitrogen 105 *H 9-23 mg/dL Creatinine 5.44 H 0.700-1.30 mg/dL Glomerular Filtration Rate Calc 11 >90 mL/min BUN/Creatinine Ratio 19.3 10.0-20.0 Serum Glucose 115 H 74-106 mg/dL Hemoglobin A1c 5.6 <5.7 % A1C Calcium Level 7.9 L 8.7-10.4 mg/dL Triglycerides Level 65 < 150 mg/dL Cholesterol Level 159 < 200 mg/dL LDL Cholesterol 107 H < 100 mg/dL HDL Cholesterol 38 L 40-59 mg/dL Troponin I High Sensitivity 267 *H </=54 ng/L Urine Color Colorless Yellow Urine Clarity Turbid H Clear Urine pH 6.0 5.0-9.0 Urine Specific [place] 1.009 1.001-1.035 Urine Protein 2+ H Negative Urine Ketones Negative Negative Urine Blood 1+ H Negative /uL Urine Nitrite Negative Negative Urine Bilirubin Negative Negative Urine Urobilinogen Normal Negative mg/dL Urine Leukocyte Esterase 3+ Negative /uL Urine RBC 7 0 - 3 /hpf Urine WBC Clumps Present None Seen /hpf Urine Microscopic WBC 818 H 0-3 /HPF Urine Squamous Epithelial Cells None seen <5 /hpf Urine Bacteria Few H None Seen /hpf Urine Glucose Normal Normal mg/dL Total Bilirubin 0.7 0.2-1.0 mg/dL Aspartate Amino Transferase (AST) 32 13-40 U/L Alanine Aminotransferase (ALT) 59 H 7-40 U/L Alkaline Phosphatase 190 H 46-116 U/L Total Protein 6.3 5.7-8.2 g/dL Albumin 4.1 3.2-4.8 g/dL Assessment/Plan Assessment/Plan This is a 58-year-old gentleman with ESRD secondary to chronic obstructive uropathy (BPH with probable bladder cancer) who presents with signs of a complicated UTI and demand ischemia. #CKD stage 5 vs ESRD due to obstructive uropathy #s/p bilateral nephrostomy #s/p tunneled catheter #Sepsis due to complicated UTI #NSTEMI type 2: most likely #BPH #Possible bladder cancer #Possible metastasis #Hepatitis C: chronic #Anemia of chronic disease #h/o seizures Admit Telemetry IV fluids per Nephrology Ceftriaxone IV Bicarbonate per Nephro Nephrology on board ECHO pending Urology consult IR consult: removal of tunneled catheter and change of nephrostomies Levetiracetam PO Furosemide IV once per Nephro Dialysis will be discussed if patient doesn't respond to fluids DVT prophylaxis: heparin Case discussed with Dr Guadalupe Plan discussed with: Patient, Other (rn) My Orders Orders - BUNNY LI RESIDENT Procedure Category Date Status Time Admit ADMIT 07/03/24 Transmitted 15:43 Code Status CODE 07/03/24 Transmitted 15:43 Vital Signs ESPERANZA 07/03/24 In Process 15:43 Review Orders With ESPERANZA 07/03/24 In Process Adm.Md 15:43 Notify Md Of Changes ESPERANZA 07/03/24 In Process From Base 15:43 Advance Directive ESPERANZA 07/03/24 In Process 15:43 Kub Abdomen Single XY 07/03/24 Resulted View 15:43 Echo 2d Mode Cardiac US 07/03/24 Logged DOP 15:43 Blood Culture COOKIE 07/03/24 In Process 15:43 Urine Bacterial COOKIE 07/03/24 In Process Culture 15:43 Patient Condition ORDERS 07/03/24 Transmitted 15:43 Allergies ESPERANZA 07/03/24 In Process 15:43 Drug Screen LAB 07/03/24 In Process 15:43 Oxygen By Nasal RT 07/03/24 Transmitted Cannula 15:43 Stat Ekg For Chest ESPERANZA 07/03/24 In Process Pain 15:43 Notify Md Of Changes ESPERANZA 07/03/24 In Process From Base 15:43 Camouflage Specialist For ESPERANZA 07/03/24 In Process 24 Hours 15:43 Emergency Dysrhythmia ESPERANZA 07/03/24 In Process Protocol 15:43 Rhythm Strips Once ESPERANZA 07/03/24 In Process Every Shift 15:43 *Dr. [facility] CONS 07/03/24 Transmitted -[place] 15:43 * Urology Consult CONS 07/03/24 Transmitted 15:51 Ceftriaxone 1gm/50ml PHA 07/03/24 In Process D5w (Rocephin) 16:10 Sodium Chloride 0.9% PHA 07/03/24 In Process 16:15 Education - Smoking ESPERANZA 07/03/24 In Process Cessation 17:49 * Smoking Cessation CONS 07/03/24 Transmitted Consult 17:49 Mrsa Screen COOKIE 07/03/24 In Process 17:49 * Radiologist Consult CONS 07/03/24 Transmitted 18:00 Date of Service: Jul 03, 2024 Billing Provider: LUCA GUADALUPE MD Common Visit Codes: [id number] INP/OBS CARE (HIGH) BUNNY LI RESIDENT Jul 03, 2024 22:01 LUCA GUADALUPE MD Jul 05, 2024 09:02
[2024-07-03] MEDS: FUROSEMIDE 100 MG/10ML VIAL IV ONE (22:02)
[2024-07-03 22:04] LABS: Amphetamine Screen, Urine Neg (NEGATIVE); Barbiturate Scree,Urine Neg (NEGATIVE); Benzodiazephine Screen, Urine Neg (NEGATIVE); Cannabinoid Screen, Urine Neg (NEGATIVE); Cocaine Screen, Urine Neg (NEGATIVE); Opiate Scree,Urine Neg (NEGATIVE); Phencyclidine Screen, Urine Neg (NEGATIVE)
[2024-07-04] VITALS (10 sets, daily range): BP systolic 132–158; BP diastolic 79–97; PULSE 71–99; RESP 18–20; TEMP 97.5–98.7; O2SAT 96–99
[2024-07-04 06:39] LABS: Basophils # (auto) 0 10 ^3/uL (0-0.2); Basophils % (auto) 0.7 % (0.0-2.0); Eosinophils # (auto) 0.2 10 ^3/uL (0-0.8); Eosinophils % (auto) 3.7 % (0.0-7.0); Hematocrit 34.4 % (41.0-53.0); Hemoglobin 11.6 g/dL (13.5-17.5); Lymphocytes % (auto) 20.1 % (10.0-50.0); Mean Corpuscular Hemoglobin 31.6 pg (28.0-32.0); Mean Corpuscular Hgb Conc. 33.8 g/dL (32.0-36.0); Mean Corpuscular Volume 93.5 fL (80.0-100.0); Monocytes # (auto) 0.5 10 ^3/uL (0-1.3); Monocytes % (auto) 9.6 % (0.0-12.0); Neutrophils # (auto) 3.4 10 ^3/uL (1.6-8.6); Neutrophils % (auto) 65.9 % (37.0-80.0); Platelet Count (auto) 185 10^3/uL (140-450); Red Blood Cells 3.68 10^6/uL (4.5-5.90); White Blood Cell 5.2 10^3/uL (4.4-10.8)
[2024-07-04 06:50] LABS: INR 1.28 (0.9-1.15); Partial Thromboplastin Time 30.3 SEC (24.5-34.5); Prothrombin Time 13.2 sec (9.3-11.8)
[2024-07-04 06:54] LABS: Potassium 4.1 mmol/L (3.5-5.1); Sodium 144 mmol/L (136-145)
[2024-07-04 07:01] LABS: Magnesium 1.7 mg/dL (1.6-2.6)
[2024-07-04 07:05] LABS: Chloride 117 mmol/L (98-107)
[2024-07-04 07:06] LABS: Alkaline Phosphatase 173 U/L (46-116); Anion Gap 11 (5-15); Calcium 7.7 mg/dL (8.7-10.4)
[2024-07-04 07:07] LABS: Carbon Dioxide 16 mmol/L (20-31)
[2024-07-04 07:08] LABS: BUN/Creatinine Ratio 18.7 (10.0-20.0); Glucose 96 mg/dL (74-106)
[2024-07-04 07:09] LABS: Total Protein 6.1 g/dL (5.7-8.2)
[2024-07-04 07:10] LABS: Albumin 3.9 g/dL (3.2-4.8); Aspartate Aminotransferase 26 U/L (13-40); Bilirubin, Total 0.8 mg/dL (0.2-1.0)
[2024-07-04 07:17] LABS: Alanine Aminotransferase 52 U/L (7-40)
[2024-07-04 07:18] LABS: Phosphorus 6.3 mg/dL (2.4-5.1)
[2024-07-04 07:25] LABS: Blood Urea Nitrogen 102 mg/dL (9-23)
[2024-07-04 07:38] LABS: Triglycerides 65 mg/dL (< 150)
[2024-07-04 07:40] LABS: Cholesterol 165 mg/dL (< 200); HDL Cholesterol 39 mg/dL (40-59); LDL Cholesterol 111 mg/dL (< 100)
--- NOTE | 2024-07-04 08:22 | DVHPN2 ---
Progress Note Date Seen: Jul 04, 2024 Medical Necessity Reason Pt with a Central, PICC or Fol: No Subjective Patient reports: No new complaints Review of Systems: :Abnormal Objective vital signs Vital Sign Date Time Temp Pulse Resp B/P (MAP) Pulse Ox O2 Delivery O2 Flow Rate FiO2 07/04/24 05:00 97.5 89 18 140/89 (106) 99 97.5 07/03/24 20:00 Room Air* 0 21 Total Intake and Output 07/03/24 07/03/24 07/04/24 15:00 23:00 07:00 Intake Total 395 ml 240 ml Output Total 810 ml 600 ml Balance -415 ml -360 ml medications Current Medications Medications Dose Ordered Sig/Vj Route Start Time Stop Time Status Last Admin Dose Admin Ceftriaxone Sodium 50 ml @ 100 mls/hr DAILY@09 IV 07/03/24 16:10 07/03/24 16:19 100 MLS/HR Sodium Chloride 1,000 ml @ 100 mls/hr Q10H IV 07/03/24 16:15 07/03/24 16:42 100 MLS/HR Sodium Bicarbonate 650 mg TID PO 07/03/24 22:00 07/03/24 21:58 650 MG Heparin Sodium (Porcine) 5,000 units Q12HR SC 07/04/24 10:00 Levetiracetam 500 mg BID PO 07/04/24 10:00 Tamsulosin HCl 0.4 mg QPM PO 07/04/24 18:00 Acetaminophen 650 mg Q4HP PRN PO 07/04/24 00:00 Examination: GENERAL:Abnormal, :Abnormal laboratory and microbiology Laboratory Tests 07/04/24 05:26 Test 07/04/24 05:26 Range/Units Serum Glucose 96 74-106 mg/dL Problem List/Assessment/Plan Problem List/Assessment/Plan Acute kidney injury on chronic kidney disease stage 5 Previously on dialysis for advanced kidney disease Chronic urinary obstruction with bilateral nephrostomy tubes Sepsis secondary to urinary tract infection Metabolic acidosis hyperphosphatemia Blood cx to rule out bacteremia remove old tunnel HD catheter Resume IV fluids , lasix IV broad spectrum ABX renal diet phos binder Recommend services to replace nephrostomy tubes from a renal standpoint patient current function indicates need to resume HD. I recommend new tunnel HD catheter once infection is cleared and resume HD reports he now has stable living situation , will need case management Plan discussed with: Patient My Orders My Orders Orders - LUCINDA ISLAS MD Procedure Category Date Status Time Consistent DIET 07/03/24 Transmitted Carb(Ccho)Diabetes Dinner Strict I & O ESPERANZA 07/03/24 In Process 18:18 Acute Hepatitis Panel LAB 07/03/24 In Process 18:37 Sodium Bicarb Tab PHA 07/03/24 In Process 22:00 LUCINDA ISLAS MD Jul 04, 2024 08:22
[2024-07-04] MEDS: levETIRAcetam 500 MG TAB PO SCH (09:27)
[2024-07-04] MEDS: HEPARIN SODIUM (PORCINE) 5000 UNITS/ML 1ML VIAL SC SCH (09:27)
[2024-07-04] MEDS: CALCIUM ACETATE 667 MG CAP PO SCH (11:53)
--- NOTE | 2024-07-04 15:59 | DVHPNRES ---
Progress Note Date Seen: Jul 04, 2024 Resident Creating Document: BUNNY LI RESIDENT Medical Necessity Reason Pt with a Central, PICC or Fol: No Subjective Review of Systems A 58-year-old male with a complex urologic history (possible bladder cancer) and CKD stage 5 on intermittent hemodialysis who presents with a burning on his abdominal area. He had bilateral percutaneous nephrostomy tubes placed in March 2023 for obstruction and was started on hemodialysis at that time. He subsequently moved his care to [place]; dialysis was stopped in august 2023 after some recovery of renal function. He has not received dialysis for nearly a year and had poor medical follow-up during that time. His nephrostomy tubes were last exchanged in dec 2023; He recently relocated from [place] to the [facility], which interrupted continuity of care. He reports that the nephrostomy output became cloudy and malodorous recently. He urinates via both the nephrostomy tubes and per urethra He was found to have an elevated troponin (peaked in the 200s) without ST elevations on ECG. Laboratory evaluation revealed significantly elevated blood urea nitrogen (BUN 101) and creatinine (5.2), indicating acute kidney injury on chronic kidney disease. Urinalysis showed 3+ leukocyte esterase and heavy pyuria (WBC 818) consistent with a urinary tract infection (UTI). A CT scan of the abdomen/pelvis demonstrated that his bilateral nephrostomy tubes are in place with no evidence of hydronephrosis or nephrolithiasis. Notably, the scan showed marked prostatomegaly with circumferential bladder wall thickening concerning for an underlying tumor, as well as possible enlarged lymph nodes suspicious for metastatic disease (bladder cancer). On arrival, he denied significant chest pain or shortness of breath. His primary symptom was abdominal pain with urinary discomfort. Nephrology (Dr. Devora Gordon) was consulted and assessed that the patient doesn't have emergent indication for HD, patient will need change of nephrostomies and removal of tunneled catheter. Urology was also consulted for evaluation of the bladder mass and management of his nephrostomy tubes. Past Medical History ESRD vs CKD stage V secondary to obstructive uropathy from BPH and probable bladder cancer Obstructive uropathy with bilateral hydronephrosis, status post bilateral percutaneous nephrostomy tubes (placed 03/2023) Possible bladder cancer, under evaluation (bladder wall thickening on imaging): no f/u Benign prostatic hyperplasia (BPH) (long-standing, with marked prostatomegaly on imaging) Hepatitis C (chronic HCV infection) Hypertension (history of elevated BP, on clonidine) Poor dialysis follow-up (history of non-adherence to scheduled dialysis) Seizures? on levetiracetam Objective vital signs Vital Sign Date Time Temp Pulse Resp B/P (MAP) Pulse Ox O2 Delivery O2 Flow Rate FiO2 07/04/24 13:00 98.6 76 18 136/88 (104) 99 98.6 07/04/24 08:00 Room Air* 0 21 Total Intake and Output 07/03/24 07/03/24 07/04/24 15:00 23:00 07:00 Intake Total 395 ml 240 ml Output Total 810 ml 600 ml Balance -415 ml -360 ml medications Current Medications Medications Dose Ordered Sig/Vj Route Start Time Stop Time Status Last Admin Dose Admin Ceftriaxone Sodium 50 ml @ 100 mls/hr DAILY@09 IV 07/03/24 16:10 07/04/24 08:35 100 MLS/HR Sodium Chloride 1,000 ml @ 100 mls/hr Q10H IV 07/03/24 16:15 07/04/24 09:24 100 MLS/HR Sodium Bicarbonate 650 mg TID PO 07/03/24 22:00 07/04/24 13:56 650 MG Heparin Sodium (Porcine) 5,000 units Q12HR SC 07/04/24 10:00 Levetiracetam 500 mg BID PO 07/04/24 10:00 Tamsulosin HCl 0.4 mg QPM PO 07/04/24 18:00 Acetaminophen 650 mg Q4HP PRN PO 07/04/24 00:00 Calcium Acetate 1,334 mg TIDWMEALS PO 07/04/24 12:00 07/04/24 11:53 1,334 MG Examination General: Alert and oriented. Appears fatigued but in no acute distress. Mild discomfort due to abdominal pain. Chest: tunneled catheter clotted Cardiac: Normal S1/S2, regular rhythm. No murmurs, rubs, or gallops. Peripheral pulses intact. Respiratory: Clear to auscultation bilaterally. No wheezes, rales, or rhonchi. Abdomen: Soft, non-distended. Mild tenderness in the suprapubic region. No rebound or guarding. Flank examination reveals well-healing nephrostomy tube sites bilaterally with no erythema or discharge. Bilateral nephrostomy tubes are in place and draining urine into collection bags. The urine in the bags is cloudy in appearance. No costovertebral angle tenderness on percussion. Extremities: No peripheral edema. No clubbing or cyanosis. Neurologic: Alert, oriented 3. No focal neurologic deficits noted laboratory and microbiology Laboratory Tests 07/04/24 05:26 Test 07/04/24 05:26 Range/Units Serum Glucose 96 74-106 mg/dL Microbiology Date/Time Source Procedure Growth Status 07/03/24 18:06 Nose MRSA Screen - Final Complete Problem List/Assessment/Plan Problem List/Assessment/Plan This is a 58-year-old gentleman with ESRD secondary to chronic obstructive uropathy (BPH with probable bladder cancer) who presents with signs of a complicated UTI and demand ischemia. #CKD stage 5 vs ESRD due to obstructive uropathy #s/p bilateral nephrostomy #s/p tunneled catheter #Sepsis due to complicated UTI #NSTEMI type 2: most likely #BPH #Possible bladder cancer #Possible metastasis #Hepatitis C: chronic #Anemia of chronic disease #h/o seizures Telemetry IV fluids per Nephrology Ceftriaxone IV Bicarbonate per Nephro Nephrology on board ECHO reading pending Urology consult IR consult: removal of tunneled catheter and change of nephrostomies Levetiracetam PO Furosemide IV once per Nephro Patient will need dialysis but blood infection needed to be rule out first, blood cultures pending DVT prophylaxis: heparin Case discussed with Dr Renee Plan discussed with: Patient, Other (rn) My Orders My Orders Orders - BUNNY LI Procedure Category Date Status Time Sodium Chloride 0.9% PHA 07/03/24 In Process 16:15 Education - Smoking ESPERANZA 07/03/24 In Process Cessation 17:49 * Smoking Cessation CONS 07/03/24 Transmitted Consult 17:49 * Radiologist Consult CONS 07/03/24 Transmitted 18:00 Vitamin B12 LAB 07/04/24 In Process 04:00 Heparin Sodium PHA 07/04/24 In Process (Porcine) 10:00 Levetiracetam Tablet PHA 07/04/24 In Process (Keppra Tablet) 10:00 Tamsulosin PHA 07/04/24 In Process Hydrochloride (Flomax) 18:00 Acetaminophen Tablet PHA 07/04/24 In Process (Tylenol Tablet) 00:00 Alprazolam Tablet PHA 07/04/24 Verified (Xanax Tablet) 16:00 Date of Service: Jul 04, 2024 Billing Provider: IVANA RENEE MD Common Visit Codes: [id number] INP/OBS CARE(HIGH) BUNNY LI RESIDENT Jul 04, 2024 15:59 IVANA RENEE MD Jul 04, 2024 22:28
[2024-07-04] MEDS: TAMSULOSIN HYDROCHLORIDE 0.4 MG CAP PO SCH (17:43)
[2024-07-04] MEDS: cloNIDine HCL 0.1 MG TAB PO ONE (22:48)
[2024-07-05] VITALS (7 sets, daily range): BP systolic 127–147; BP diastolic 74–94; PULSE 82–90; RESP 14–18; TEMP 97.4–98.1; O2SAT 94–97
[2024-07-05] MEDS: ALPRAZolam 0.5 MG TAB PO PRN (01:07)
--- NOTE | 2024-07-05 02:35 | DVHSR ---
APPROVED REPORT EXAM: Two-dimensional and M-mode echocardiogram with Doppler and color Doppler. Blood Pressure: 140/89 mmHg INDICATION NSTEMI RISK FACTORS Height: 5'10", Weight: 158 DIMENSIONS LVDd3.5 (3.8-5.7cm)LA (2D)4.2 (1.9-4.0cm)Aortic Root3.7 (2.0-3.7cm) LVDs2.7 (2.5-4.0cm)LA (MM) (1.9-4.0cm)Aortic Cusp Exc2.1 (1.5-2.0cm) EF (%) 46.0 (55-70%)Rt. Atrium5.4 (1.9-4.0cm)Asc. Aorta cm IVSd2.0 (0.7-1.1cm)RV (D)4.1 (1.8-2.4cm) PWd2.1 (0.7-1.1cm) Mitral Valve MitralMitral Stenosis E wave1.01m/sMV Mean GR.mmHg E/A ratio0.02D MVAcm2 Aortic Valve Aortic ValveAortic Stenosis V11.13m/Terry Mean GR.3mmHg V21.03m/Terry Peak GR.4mmHg LVOT Diameter2.2 (1.8-2.4cm)Doppler AVA4.17cm2 Pulmonic Valve V20.74m/s Tricuspid Valve TR Velocity3.37m/s [id number] Conclusion 1. SEVERE LVH AND SEVERE LV DIASTOLIC DYSFUNCTION 2. LV EF IS LOW NORMAL AND IS 45% 3. MODERATELY DILATED RV 4. MODERATE DEGREE PULMONARY HYPERTENSION RVSP IS 53 MM OF HG AND IS MODERATELY HIGH 5. MILD GLOBAL PERICARDIAL EFFUSION 6. NORMAL VALVES
[2024-07-05 10:16] LABS: Basophils # (auto) 0.1 10 ^3/uL (0-0.2); Eosinophils # (auto) 0.3 10 ^3/uL (0-0.8); Eosinophils % (auto) 4.2 % (0.0-7.0); Hematocrit 35.8 % (41.0-53.0); Hemoglobin 11.8 g/dL (13.5-17.5); Lymphocytes # (auto) 1.3 10 ^3/uL (0.4-5.4); Lymphocytes % (auto) 21.8 % (10.0-50.0); Mean Corpuscular Hemoglobin 31.3 pg (28.0-32.0); Mean Corpuscular Hgb Conc. 32.8 g/dL (32.0-36.0); Mean Corpuscular Volume 95.3 fL (80.0-100.0); Monocytes # (auto) 0.5 10 ^3/uL (0-1.3); Monocytes % (auto) 8.6 % (0.0-12.0); Neutrophils # (auto) 3.9 10 ^3/uL (1.6-8.6); Neutrophils % (auto) 64.4 % (37.0-80.0); Nucleated Red Blood Cells % 0.2 %; Platelet Count (auto) 194 10^3/uL (140-450); Red Blood Cells 3.76 10^6/uL (4.5-5.90); Red Cell Distribution Width 15.4 % (11.8-14.3)
[2024-07-05 10:48] LABS: Albumin 3.7 g/dL (3.2-4.8); Anion Gap 14 (5-15); Aspartate Aminotransferase 32 U/L (13-40); BUN/Creatinine Ratio 18.3 (10.0-20.0); Bilirubin, Total 0.7 mg/dL (0.2-1.0); Potassium 4.2 mmol/L (3.5-5.1); Sodium 143 mmol/L (136-145); Total Protein 5.7 g/dL (5.7-8.2)
[2024-07-05 11:06] LABS: Alanine Aminotransferase 42 U/L (7-40); Alkaline Phosphatase 168 U/L (46-116); Calcium 7.7 mg/dL (8.7-10.4); Carbon Dioxide 14 mmol/L (20-31); Chloride 115 mmol/L (98-107); Glucose 116 mg/dL (74-106)
[2024-07-05 11:07] LABS: Blood Urea Nitrogen 95 mg/dL (9-23)
--- NOTE | 2024-07-05 13:15 | DVHPN2 ---
Progress Note Date Seen: Jul 05, 2024 Medical Necessity Reason Pt with a Central, PICC or Fol: No Objective vital signs Vital Sign Date Time Temp Pulse Resp B/P (MAP) Pulse Ox O2 Delivery O2 Flow Rate FiO2 07/05/24 12:52 97.4 86 18 139/85 (103) 97 97.4 07/05/24 07:30 Room Air* 0 21 Total Intake and Output 07/04/24 07/04/24 07/05/24 14:59 22:59 06:59 Intake Total 950 ml 400 ml 900 ml Output Total 250 ml 500 ml 800 ml Balance 700 ml -100 ml 100 ml medications Current Medications Medications Dose Ordered Sig/Vj Route Start Time Stop Time Status Last Admin Dose Admin Ceftriaxone Sodium 50 ml @ 100 mls/hr DAILY@09 IV 07/03/24 16:10 07/05/24 08:07 100 MLS/HR Sodium Chloride 1,000 ml @ 100 mls/hr Q10H IV 07/03/24 16:15 07/05/24 11:10 100 MLS/HR Sodium Bicarbonate 650 mg TID PO 07/03/24 22:00 07/05/24 05:14 650 MG Heparin Sodium (Porcine) 5,000 units Q12HR SC 07/04/24 10:00 Levetiracetam 500 mg BID PO 07/04/24 10:00 Tamsulosin HCl 0.4 mg QPM PO 07/04/24 18:00 07/04/24 17:43 0.4 MG Acetaminophen 650 mg Q4HP PRN PO 07/04/24 00:00 Calcium Acetate 1,334 mg TIDWMEALS PO 07/04/24 12:00 07/05/24 11:42 1,334 MG Alprazolam 0.5 mg [id number] PRN PO 07/04/24 16:00 07/05/24 01:07 0.5 MG Examination: GENERAL:Normal, CVS:Normal, ABDOMEN:Normal, :Abnormal laboratory and microbiology Laboratory Tests 07/05/24 09:48 Test 07/05/24 09:48 Range/Units Serum Glucose 116 H 74-106 mg/dL Microbiology Date/Time Source Procedure Growth Status 07/03/24 19:16 Blood Blood Culture - Preliminary NO GROWTH AFTER 24 HOURS OF INCUBATION. Resulted 07/03/24 18:06 Nose MRSA Screen - Final Complete 07/03/24 11:15 Voided Urine Urine Culture - Preliminary Resulted Problem List/Assessment/Plan Problem List/Assessment/Plan Acute kidney injury on chronic kidney disease stage 5 Previously on dialysis for advanced kidney disease stopped dialysis more than 10 months ago Chronic urinary obstruction with bilateral nephrostomy tubes Sepsis secondary to urinary tract infection Metabolic acidosis hyperphosphatemia Blood cx to rule out bacteremia no growth to date remove old tunnel HD catheter by IR Resume IV fluids , lasix IV broad spectrum ABX renal diet phos binder Recommend services to replace nephrostomy tubes last replaced in December of last year from a renal standpoint patient current function indicates need to resume HD. I recommend new tunnel HD catheter once infection is cleared however patient states that he will not return to hemodialysis. He is aware of the risk of worsening clinical condition and should he not resume dialysis but he is aware of these risks. For now remove old dialysis catheter continue treatment of infection and rest of care as per primary medical team Plan discussed with: Patient LUCINDA ISLAS MD Jul 05, 2024 13:15
--- NOTE | 2024-07-05 16:34 | DVHPN2 ---
Subjective Feels better today Reviewed: Care Plan, H&P, Labs, Medications, Previous Orders, Radiology, Other (Consultants) Changes from previous H/P or p: No Changes Objective Vitals Vital Signs Date Time Temp Pulse Resp B/P (MAP) Pulse Ox O2 Delivery O2 Flow Rate FiO2 07/05/24 12:52 97.4 86 18 139/85 (103) 97 97.4 07/05/24 07:30 Room Air* 0 21 Intake/Output Intake and Output 07/05/24 06:59 Intake Total 2250 ml Output Total 1550 ml Balance 700 ml Intake Oral 1300 ml IV Total 950 ml Output Urine Total 1300 ml Drainage Total 250 ml General Appearance: Alert, Oriented X3, Cooperative, No acute distress HEENT: Atraumatic Lungs: Clear to auscultation Cardiovascular: Regular rate Abdomen: Other (Bilateral nephrostomy is in place.) Medications Current Medications Medications Dose Ordered Sig/Vj Route Start Time Stop Time Status Last Admin Dose Admin Ceftriaxone Sodium 50 ml @ 100 mls/hr DAILY@09 IV 07/03/24 16:10 07/05/24 08:07 100 MLS/HR Sodium Chloride 1,000 ml @ 100 mls/hr Q10H IV 07/03/24 16:15 07/05/24 11:10 100 MLS/HR Sodium Bicarbonate 650 mg TID PO 07/03/24 22:00 07/05/24 05:14 650 MG Heparin Sodium (Porcine) 5,000 units Q12HR SC 07/04/24 10:00 Tamsulosin HCl 0.4 mg QPM PO 07/04/24 18:00 07/04/24 17:43 0.4 MG Acetaminophen 650 mg Q4HP PRN PO 07/04/24 00:00 Calcium Acetate 1,334 mg TIDWMEALS PO 07/04/24 12:00 07/05/24 11:42 1,334 MG Alprazolam 0.5 mg [id number] PRN PO 07/04/24 16:00 07/05/24 01:07 0.5 MG Laboratory Results Laboratory Tests 07/05/24 09:48 Chemistry Test 07/05/24 09:48 Albumin 3.7 g/dL (3.2-4.8) Calcium Level 7.7 mg/dL (8.7-10.4) L Total Protein 5.7 g/dL (5.7-8.2) LFT Test 07/05/24 09:48 Alanine Aminotransferase (ALT) 42 U/L (7-40) H Alkaline Phosphatase 168 U/L (46-116) H Aspartate Amino Transferase (AST) 32 U/L (13-40) Total Bilirubin 0.7 mg/dL (0.2-1.0) Urinalysis Test 07/03/24 11:15 Urine Color Colorless (Yellow) Urine Clarity Turbid (Clear) H Urine pH 6.0 (5.0-9.0) Urine Specific [place] 1.009 (1.001-1.035) Urine Protein 2+ (Negative) H Urine Ketones Negative (Negative) Urine Blood 1+ /uL (Negative) H Urine Nitrite Negative (Negative) Urine Bilirubin Negative (Negative) Urine Urobilinogen Normal mg/dL (Negative) Urine Leukocyte Esterase 3+ /uL (Negative) Urine RBC 7 /hpf (0 - 3) Urine WBC Clumps Present /hpf (None Seen) Urine Microscopic WBC 818 /HPF (0-3) H Urine Squamous Epithelial Cells None seen /hpf (<5) Urine Bacteria Few /hpf (None Seen) H Urine Glucose Normal mg/dL (Normal) Microbiology Microbiology Date/Time Source Procedure Growth Status 07/03/24 19:16 Blood Blood Culture - Preliminary NO GROWTH AFTER 24 HOURS OF INCUBATION. Resulted 07/03/24 18:06 Nose MRSA Screen - Final Complete 07/03/24 11:15 Voided Urine Urine Culture - Preliminary Resulted Assessment/Plan Assessment/Plan Acute kidney injury/end-stage renal disease on top of chronic kidney disease UTI with sepsis Non-STEMI BPH History of Bladder cancer of unclear nature/patient never followed up for 15 months. Anemia of chronic disease Medical noncompliance Plan: Continue current plan of care. Patient refused heparin injections for DVT prophylaxis. Check CBC and CMP. Urology consultation. Further plan per orders Plan discussed with: Patient My Orders Orders - IVANA RENEE MD Procedure Category Date Status Time * Urology Consult CONS 07/05/24 Transmitted 14:18 Complete Blood Count LAB 07/06/24 Verified 06:00 Comprehensive LAB 07/06/24 Verified Metabolic Panel 06:00 Date of Service: Jul 05, 2024 Billing Provider: IVANA RENEE MD Common Visit Codes: [id number] INP/OBS CARE(HIGH) IVANA RENEE MD Jul 05, 2024 16:34
[2024-07-06] VITALS (10 sets, daily range): BP systolic 121–166; BP diastolic 77–107; PULSE 83–100; RESP 14–24; TEMP 97.5–98.2; O2SAT 90–96
[2024-07-06 07:01] LABS: Basophils # (auto) 0 10 ^3/uL (0-0.2); Basophils % (auto) 0.9 % (0.0-2.0); Eosinophils # (auto) 0.2 10 ^3/uL (0-0.8); Eosinophils % (auto) 5.3 % (0.0-7.0); Hematocrit 35.3 % (41.0-53.0); Hemoglobin 11.6 g/dL (13.5-17.5); Lymphocytes # (auto) 1.1 10 ^3/uL (0.4-5.4); Lymphocytes % (auto) 25.2 % (10.0-50.0); Mean Corpuscular Hemoglobin 31.4 pg (28.0-32.0); Mean Corpuscular Hgb Conc. 32.8 g/dL (32.0-36.0); Mean Corpuscular Volume 95.8 fL (80.0-100.0); Monocytes # (auto) 0.4 10 ^3/uL (0-1.3); Monocytes % (auto) 9.3 % (0.0-12.0); Neutrophils # (auto) 2.7 10 ^3/uL (1.6-8.6); Neutrophils % (auto) 59.3 % (37.0-80.0); Nucleated Red Blood Cells % 0.1 %; Platelet Count (auto) 183 10^3/uL (140-450); Red Blood Cells 3.69 10^6/uL (4.5-5.90); Red Cell Distribution Width 15.6 % (11.8-14.3); White Blood Cell 4.5 10^3/uL (4.4-10.8)
[2024-07-06 07:16] LABS: Alanine Aminotransferase 34 U/L (7-40)
[2024-07-06 07:17] LABS: Anion Gap 10 (5-15); BUN/Creatinine Ratio 15.9 (10.0-20.0); Glucose 92 mg/dL (74-106); Potassium 3.9 mmol/L (3.5-5.1); Total Protein 5.9 g/dL (5.7-8.2)
[2024-07-06 07:18] LABS: Albumin 3.8 g/dL (3.2-4.8); Aspartate Aminotransferase 15 U/L (13-40); Bilirubin, Total 0.6 mg/dL (0.2-1.0)
[2024-07-06 07:39] LABS: Sodium 146 mmol/L (136-145)
[2024-07-06 07:40] LABS: Alkaline Phosphatase 153 U/L (46-116); Calcium 7.9 mg/dL (8.7-10.4); Carbon Dioxide 18 mmol/L (20-31); Chloride 118 mmol/L (98-107)
[2024-07-06 07:41] LABS: Blood Urea Nitrogen 81 mg/dL (9-23)
[2024-07-06] MEDS: SODIUM CHLORIDE 0.9% 1,000 ML IV SCH (09:00)
[2024-07-06] MEDS: fentaNYL CITRATE 100 MCG/2 ML VL ONE (10:18)
[2024-07-06] MEDS: MIDAZOLAM HCL 2MG/2ML 2ml VIAL (1mg/ml) ONE (10:18)
[2024-07-06] MEDS: LIDOCAINE 2%HCL (LOCAL ANESTH.) INJ 20ML MDV ONE (10:18)
[2024-07-06 10:41] LABS: Hepatitis B Surface Antigen Negative (Negative)
[2024-07-06 10:59] LABS: Hepatitis A Ab IgM Negative; Hepatitis B Core IgM Negative (Negative)
[2024-07-06 11:00] LABS: Hepatitis C Antibody Reactive (Negative)
[2024-07-06] MEDS: LIDOCAINE 2%HCL (LOCAL ANESTH.) INJ 10ml MDV ONE (11:25)
--- NOTE | 2024-07-06 12:44 | DVH ---
XY CHANGE PERC. DRAIN W CONTRAST, HISTORY: With sepsis, nephrostomy tubes in place for 3 months here for exchange of bilateral tubes. PROCEDURE: Informed consent was obtained. The patient was placed on the fluoroscopic table in a prone position and IV sedation administered. The bilateral flank was prepped with chlorhexidine which was allowed to dry and draped in the usual sterile fashion. Time out was performed and the soft tissues i nfiltrated with 1% lidocaine local anesthetic. An antegrade nephrostogram was performed to confirm po sition of the previous left nephrostomy tube. The tube was cut and a guidewire was inserted through t he nephrostomy tube into the ureter. The prior nephrostomy tube was removed, and a new 8.5 Fr multipu rpose drainage catheter was advanced into the left renal pelvis over a wire. Completion antegrade nep hrostogram demonstrates appropriate position of the new left nephrostomy tube in the renal pelvis. Th e catheter was secured in place and connected to gravity drainage. An antegrade nephrostogram was performed to confirm position of the previous right nephrostomy tube. The tube was cut and a guidewire was inserted through the nephrostomy tube into the ureter. The prior right nephrostomy tube was removed, and a new 8.5 Fr multipurpose drainage catheter was advanced int o the renal pelvis over a wire. Completion antegrade nephrostogram demonstrates appropriate position of the new right nephrostomy tube in the renal pelvis. The catheter was secured in place and connecte d to gravity drainage. A sterile dressing was applied. No immediate complication was identified. DAP 445 FLUOROSCOPY TIME: 3.4 minutes. CONTRAST USED: 15 mL . SEDATION: Dr. Laura Meyer was personally responsible for the administration of moderate sedation during the procedure performed, including the use of an independent trained observer who had no other duties during the procedure. The drugs utilized were IV fentanyl and versed (see nursing log for details). The total time of supervision by the attending physician was approximately 45 minutes. FINDINGS: Right and left nephrostomy tubes were retracted into the caylx. Exchange and reposition of the right and left nephrostomy tubes into the renal pelvis. IMPRESSION: Exchange and reposition of the right and left 8.5 Fr nephrostomy tubes into the renal pelvis. PLAN: Routine catheter care. Routine exchange in 3 months.
--- NOTE | 2024-07-06 12:46 | DVH ---
XY Removal of central venous cath, HISTORY: REMOVE HD CATH PROCEDURE: An informed consent was obtained. The patient was placed inclined on a gurney. The skin ar ound the catheter was prepped with chlorhexidine which was allowed to dry and draped in the usual raul rile fashion. Time out was performed. The skin and the catheter tract were infiltrated with 1% Lidoca ine . The catheter tract was blunt dissected with a Bianca clamp and the tunneled catheter was removed . Hemostasis of the venotomy site was obtained with manual pressure. The skin opening was dressed wit h a sterile bandage. No immediate complication was noted. IMPRESSION: Successful removal of right internal jugular vein tunneled dialysis catheter. Tip cut and sent for cu ltures.
--- NOTE | 2024-07-06 13:31 | DVHPNRES ---
Progress Note Date Seen: Jul 06, 2024 Resident Creating Document: BUNNY LI RESIDENT Has the PT tested + for MRSA If YES, has PT been informed?: No Medical Necessity Reason Pt with a Central, PICC or Fol: No Subjective Review of Systems A 58-year-old male with a complex urologic history (possible bladder cancer) and CKD stage 5 on intermittent hemodialysis who presents with a burning on his abdominal area. He had bilateral percutaneous nephrostomy tubes placed in March 2023 for obstruction and was started on hemodialysis at that time. He subsequently moved his care to [place]; dialysis was stopped in august 2023 after some recovery of renal function. He has not received dialysis for nearly a year and had poor medical follow-up during that time. His nephrostomy tubes were last exchanged in dec 2023; He recently relocated from [place] to the [facility], which interrupted continuity of care. He reports that the nephrostomy output became cloudy and malodorous recently. He urinates via both the nephrostomy tubes and per urethra He was found to have an elevated troponin (peaked in the 200s) without ST elevations on ECG. Laboratory evaluation revealed significantly elevated blood urea nitrogen (BUN 101) and creatinine (5.2), indicating acute kidney injury on chronic kidney disease. Urinalysis showed 3+ leukocyte esterase and heavy pyuria (WBC 818) consistent with a urinary tract infection (UTI). A CT scan of the abdomen/pelvis demonstrated that his bilateral nephrostomy tubes are in place with no evidence of hydronephrosis or nephrolithiasis. Notably, the scan showed marked prostatomegaly with circumferential bladder wall thickening concerning for an underlying tumor, as well as possible enlarged lymph nodes suspicious for metastatic disease (bladder cancer). On arrival, he denied significant chest pain or shortness of breath. His primary symptom was abdominal pain with urinary discomfort. Nephrology (Dr. Devora Gordon) was consulted and assessed that the patient doesn't have emergent indication for HD, patient will need change of nephrostomies and removal of tunneled catheter. Urology was also consulted for evaluation of the bladder mass and management of his nephrostomy tubes. Past Medical History ESRD vs CKD stage V secondary to obstructive uropathy from BPH and probable bladder cancer Obstructive uropathy with bilateral hydronephrosis, status post bilateral percutaneous nephrostomy tubes (placed 03/2023) Possible bladder cancer, under evaluation (bladder wall thickening on imaging): no f/u Benign prostatic hyperplasia (BPH) (long-standing, with marked prostatomegaly on imaging) Hepatitis C (chronic HCV infection) Hypertension (history of elevated BP, on clonidine) Poor dialysis follow-up (history of non-adherence to scheduled dialysis) Seizures? on levetiracetam Objective vital signs Vital Sign Date Time Temp Pulse Resp B/P (MAP) Pulse Ox O2 Delivery O2 Flow Rate FiO2 07/06/24 11:49 93 16 142/92 (109) 90 07/06/24 09:00 97.5 97.5 07/05/24 20:00 Room Air* 0 21 Total Intake and Output 07/05/24 07/05/24 07/06/24 15:00 23:00 07:00 Intake Total 600 ml 1380 ml 1580 ml Output Total 2550 ml 1200 ml Balance 600 ml -1170 ml 380 ml medications Current Medications Medications Dose Ordered Sig/Vj Route Start Time Stop Time Status Last Admin Dose Admin Sodium Bicarbonate 650 mg TID PO 07/03/24 22:00 07/05/24 22:23 650 MG Heparin Sodium (Porcine) 5,000 units Q12HR SC 07/04/24 10:00 Tamsulosin HCl 0.4 mg QPM PO 07/04/24 18:00 07/05/24 17:17 0.4 MG Acetaminophen 650 mg Q4HP PRN PO 07/04/24 00:00 Calcium Acetate 1,334 mg TIDWMEALS PO 07/04/24 12:00 07/05/24 17:20 1,334 MG Alprazolam 0.5 mg [id number] PRN PO 07/04/24 16:00 07/05/24 17:17 0.5 MG Sodium Chloride 1,000 ml @ 50 mls/hr Q20H IV 07/06/24 09:00 Meropenem 50 ml @ 17 mls/hr Q12HR IV 07/06/24 22:00 Examination General: Alert and oriented. Appears fatigued but in no acute distress. Mild discomfort due to abdominal pain. Chest: tunneled catheter clotted Cardiac: Normal S1/S2, regular rhythm. No murmurs, rubs, or gallops. Peripheral pulses intact. Respiratory: Clear to auscultation bilaterally. No wheezes, rales, or rhonchi. Abdomen: Soft, non-distended. Mild tenderness in the suprapubic region. No rebound or guarding. Flank examination reveals well-healing nephrostomy tube sites bilaterally with no erythema or discharge. Bilateral nephrostomy tubes are in place and draining urine into collection bags. The urine in the bags is cloudy in appearance. No costovertebral angle tenderness on percussion. Extremities: No peripheral edema. No clubbing or cyanosis. Neurologic: Alert, oriented 3. No focal neurologic deficits noted laboratory and microbiology Laboratory Tests 07/06/24 06:19 Test 07/06/24 06:19 Range/Units Serum Glucose 92 74-106 mg/dL Microbiology Date/Time Source Procedure Growth Status 07/03/24 19:16 Blood Blood Culture - Preliminary NO GROWTH AFTER 48 HOURS OF INCUBATION. Resulted 07/03/24 18:06 Nose MRSA Screen - Final Complete 07/03/24 11:15 Voided Urine Urine Culture - Final Citrobacter freundii Complete Problem List/Assessment/Plan Problem List/Assessment/Plan This is a 58-year-old gentleman with ESRD secondary to chronic obstructive uropathy (BPH with probable bladder cancer) who presents with signs of a complicated UTI and demand ischemia. #CKD stage 5 vs ESRD due to obstructive uropathy #s/p bilateral nephrostomy #s/p tunneled catheter #Sepsis due to complicated UTI: citrobacter freundii #N #NSTEMI type 2: most likely #BPH #Possible bladder cancer #Possible metastasis #Hepatitis C: chronic #Anemia of chronic disease #h/o seizures Telemetry IV fluids per Nephrology Meropenem IV Bicarbonate per Nephro Nephrology on board ECHO: 1. SEVERE LVH AND SEVERE LV DIASTOLIC DYSFUNCTION 2. LV EF IS LOW NORMAL AND IS 45% 3. MODERATELY DILATED RV 4. MODERATE DEGREE PULMONARY HYPERTENSION RVSP IS 53 MM OF HG AND IS MODERATELY HIGH 5. MILD GLOBAL PERICARDIAL EFFUSION 6. NORMAL VALVES GDMT cannot be started due to severe CKD, no spironolactone, no jardiance, no ARB, just carvedilol low dose Urology consult IR consult: removal of tunneled catheter and change of nephrostomies Levetiracetam PO Furosemide IV once per Nephro Patient will need dialysis but blood infection needed to be rule out first, blood cultures pending DVT prophylaxis: heparin Case discussed with Dr Guerra Plan discussed with: Patient, Other (rn) My Orders My Orders Orders - BUNNY LI Procedure Category Date Status Time Meropenem 500mg Ivpb PHA 07/06/24 In Process (Merrem 500mg/Ns) 22:00 Date of Service: Jul 06, 2024 Billing Provider: SPARKLE GUERRA MD Common Visit Codes: [id number] INP/OBS CARE(HIGH) BUNNY LI Jul 06, 2024 13:30 SPARKLE GUERRA MD Jul 06, 2024 22:26
[2024-07-06] MEDS: MEROPENEM 500MG IVPB 50 ML IV ONE (14:08)
[2024-07-06] MEDS: ACETAMINOPHEN 325 MG TAB PO PRN (16:17)
--- NOTE | 2024-07-06 19:46 | DVHPN2 ---
Progress Note Date Seen: Jul 06, 2024 Has the PT tested + for MRSA If YES, has PT been informed?: No Medical Necessity Reason Pt with a Central, PICC or Fol: No Subjective Patient reports: No new complaints Review of Systems: HEENT:Normal, CVS:Normal, RESPIRATORY:Normal, GI:Normal, :Normal, MSK:Normal, NEURO:Normal Objective vital signs Vital Sign Date Time Temp Pulse Resp B/P (MAP) Pulse Ox O2 Delivery O2 Flow Rate FiO2 07/06/24 11:49 93 16 142/92 (109) 90 07/06/24 09:00 97.5 97.5 07/06/24 08:00 Room Air* 0 21 Total Intake and Output 07/05/24 07/05/24 07/06/24 15:00 23:00 07:00 Intake Total 600 ml 1380 ml 1580 ml Output Total 2550 ml 1200 ml Balance 600 ml -1170 ml 380 ml medications Current Medications Medications Dose Ordered Sig/Vj Route Start Time Stop Time Status Last Admin Dose Admin Sodium Bicarbonate 650 mg TID PO 07/03/24 22:00 07/06/24 14:07 650 MG Heparin Sodium (Porcine) 5,000 units Q12HR SC 07/04/24 10:00 Tamsulosin HCl 0.4 mg QPM PO 07/04/24 18:00 07/06/24 18:23 0.4 MG Acetaminophen 650 mg Q4HP PRN PO 07/04/24 00:00 07/06/24 16:17 650 MG Calcium Acetate 1,334 mg TIDWMEALS PO 07/04/24 12:00 07/06/24 18:23 1,334 MG Alprazolam 0.5 mg [id number] PRN PO 07/04/24 16:00 07/06/24 18:26 0.5 MG Sodium Chloride 1,000 ml @ 50 mls/hr Q20H IV 07/06/24 09:00 Meropenem 50 ml @ 17 mls/hr Q12HR IV 07/06/24 22:00 Carvedilol 3.125 mg Q12HR PO 07/06/24 22:00 laboratory and microbiology Laboratory Tests 07/06/24 06:19 Test 07/06/24 06:19 Range/Units Serum Glucose 92 74-106 mg/dL Microbiology Date/Time Source Procedure Growth Status 3/28/25 19:16 Blood Blood Culture - Preliminary NO GROWTH AFTER 48 HOURS OF INCUBATION. Resulted 07/03/24 18:06 Nose MRSA Screen - Final Complete 07/03/24 11:15 Voided Urine Urine Culture - Final Citrobacter freundii Complete Problem List/Assessment/Plan Problem List/Assessment/Plan Acute kidney injury on chronic kidney disease stage 5 Previously on dialysis for advanced kidney disease stopped dialysis more than 10 months ago Chronic urinary obstruction with bilateral nephrostomy tubes possible bladder vs prostate cancer Sepsis secondary to urinary tract infection Metabolic acidosis hyperphosphatemia urology eval r/o bladder cancer and prostate Cancer -- s/p removal of tunneled HD cath reduce ivf rate from a renal standpoint patient current function indicates need to resume HD. I recommend new tunnel HD catheter once infection is cleared however patient states that he will not return to hemodialysis. He is aware of the risk of worsening clinical condition and should he not resume dialysis but he is aware of these risks and is refusing Plan discussed with: Patient My Orders My Orders Orders - ANASTASIA SANTIAGO MD Procedure Category Date Status Time Sodium Chloride 0.9% PHA 07/06/24 In Process 09:00 Dietary Evaluation Review Comments: 1) Renal specific 40gm protein 2) Continue current plan of care Expected Outcomes/Goals: Pt will meet >75% estimated needs Fu 3-5 days ANASTASIA SANTIAGO MD Jul 06, 2024 19:46
[2024-07-06] MEDS: CARVEDILOL 3.125 MG TAB PO SCH (22:10)
[2024-07-06] MEDS: MEROPENEM 500MG IVPB 50 ML IV SCH (22:11)
[2024-07-07 01:00] VITALS: BP 161/97; PULSE 90; RESP 18; TEMP 98; O2SAT 96
[2024-07-07 05:00] VITALS: BP 141/75; PULSE 86; RESP 18; TEMP 97.8; O2SAT 98
[2024-07-07 08:00] VITALS: PULSE 88; PULSE 92; RESP 19; O2SAT 98
[2024-07-07 09:00] VITALS: BP 147/103; PULSE 95; RESP 18; TEMP 98.1; O2SAT 96
[2024-07-07 09:27] LABS: Basophils # (auto) 0 10 ^3/uL (0-0.2); Basophils % (auto) 0.7 % (0.0-2.0); Eosinophils # (auto) 0.3 10 ^3/uL (0-0.8); Eosinophils % (auto) 4.4 % (0.0-7.0); Lymphocytes # (auto) 1.1 10 ^3/uL (0.4-5.4); Lymphocytes % (auto) 19.8 % (10.0-50.0); Mean Corpuscular Hemoglobin 32.4 pg (28.0-32.0); Mean Corpuscular Hgb Conc. 34.3 g/dL (32.0-36.0); Mean Corpuscular Volume 94.6 fL (80.0-100.0); Monocytes # (auto) 0.6 10 ^3/uL (0-1.3); Monocytes % (auto) 9.6 % (0.0-12.0); Neutrophils # (auto) 3.8 10 ^3/uL (1.6-8.6); Neutrophils % (auto) 65.5 % (37.0-80.0); Platelet Count (auto) 158 10^3/uL (140-450); Red Blood Cells 3.39 10^6/uL (4.5-5.90); Red Cell Distribution Width 15.9 % (11.8-14.3); White Blood Cell 5.7 10^3/uL (4.4-10.8)
[2024-07-07 09:47] LABS: Alanine Aminotransferase 36 U/L (7-40); Albumin 3.5 g/dL (3.2-4.8); Aspartate Aminotransferase 18 U/L (13-40); BUN/Creatinine Ratio 14.4 (10.0-20.0); Glucose 94 mg/dL (74-106); Potassium 3.9 mmol/L (3.5-5.1); Sodium 144 mmol/L (136-145)
[2024-07-07 09:48] LABS: Bilirubin, Total 0.8 mg/dL (0.2-1.0)
[2024-07-07 09:53] LABS: Alkaline Phosphatase 149 U/L (46-116); Blood Urea Nitrogen 71 mg/dL (9-23); Calcium 8.1 mg/dL (8.7-10.4); Carbon Dioxide 18 mmol/L (20-31); Total Protein 5.5 g/dL (5.7-8.2)
[2024-07-07 09:58] LABS: Anion Gap 7 (5-15)
[2024-07-07 10:19] LABS: Chloride 119 mmol/L (98-107)
--- NOTE | 2024-07-07 11:34 | DVHDSRES ---
Discharge Summary Date of Admission Resident Creating Document: BUNNY LI RESIDENT Jul 03, 2024 at 15:43 Date of Discharge: Jul 07, 2024 Admitting Diagnosis Dialysis urgency Labs/Diagnostic Data: Laboratory Results Test 07/07/24 09:18 07/04/24 05:26 07/03/24 19:16 07/03/24 12:56 White Blood Count 5.7 10^3/uL (4.4-10.8) Red Blood Count 3.39 10^6/uL (4.5-5.90) Hemoglobin 11.0 g/dL (13.5-17.5) Hematocrit 32.0 % (41.0-53.0) Mean Corpuscular Volume 94.6 fL (80.0-100.0) Mean Corpuscular Hemoglobin 32.4 pg (28.0-32.0) Mean Corpuscular Hemoglobin Concent 34.3 g/dL (32.0-36.0) Red Cell Distribution Width 15.9 % (11.8-14.3) Platelet Count 158 10^3/uL (140-450) Mean Platelet Volume 8.6 fL (6.9-10.8) Neutrophils (%) (Auto) 65.5 % (37.0-80.0) Lymphocytes (%) (Auto) 19.8 % (10.0-50.0) Monocytes (%) (Auto) 9.6 % (0.0-12.0) Eosinophils (%) (Auto) 4.4 % (0.0-7.0) Basophils (%) (Auto) 0.7 % (0.0-2.0) Neutrophils # (Auto) 3.8 10 ^3/uL (1.6-8.6) Lymphocytes # (Auto) 1.1 10 ^3/uL (0.4-5.4) Monocytes # (Auto) 0.6 10 ^3/uL (0-1.3) Eosinophils # (Auto) 0.3 10 ^3/uL (0-0.8) Basophils # (Auto) 0 10 ^3/uL (0-0.2) Nucleated Red Blood Cells 0.0 % Sodium Level 144 mmol/L (136-145) Potassium Level 3.9 mmol/L (3.5-5.1) Chloride Level 119 mmol/L (98-107) Carbon Dioxide Level 18 mmol/L (20-31) Anion Gap 7 (5-15) Blood Urea Nitrogen 71 mg/dL (9-23) Creatinine 4.93 mg/dL (0.700-1.30) Glomerular Filtration Rate Calc 13 mL/min (>90) BUN/Creatinine Ratio 14.4 (10.0-20.0) Serum Glucose 94 mg/dL (74-106) Calcium Level 8.1 mg/dL (8.7-10.4) Total Bilirubin 0.8 mg/dL (0.2-1.0) Aspartate Amino Transferase (AST) 18 U/L (13-40) Alanine Aminotransferase (ALT) 36 U/L (7-40) Alkaline Phosphatase 149 U/L (46-116) Total Protein 5.5 g/dL (5.7-8.2) Albumin 3.5 g/dL (3.2-4.8) Prothrombin Time 13.2 sec (9.3-11.8) Prothrombin Time INR 1.28 (0.9-1.15) Activated Partial Thromboplast Time 30.3 SEC (24.5-34.5) Phosphorus Level 6.3 mg/dL (2.4-5.1) Magnesium Level 1.7 mg/dL (1.6-2.6) Triglycerides Level 65 mg/dL (< 150) Cholesterol Level 165 mg/dL (< 200) LDL Cholesterol 111 mg/dL (< 100) HDL Cholesterol 39 mg/dL (40-59) Vitamin B12 Level 513 pg/mL (211-911) Vitamin D 25-Hydroxy 32.1 ng/mL (30.0-100) Thyroid Stimulating Hormone (TSH) 2.11 uIU/mL (0.55-4.78) Hemoglobin A1c 5.6 % A1C (<5.7) Hepatitis A IgM Antibody Negative Hepatitis B Surface Antigen Negative (Negative) Hepatitis B Core IgM Antibody Negative (Negative) Hepatitis C Antibody Reactive (Negative) Troponin I High Sensitivity 267 ng/L (</=54) Test 07/03/24 11:15 Urine Color Colorless (Yellow) Urine Clarity Turbid (Clear) Urine pH 6.0 (5.0-9.0) Urine Specific [place] 1.009 (1.001-1.035) Urine Protein 2+ (Negative) Urine Ketones Negative (Negative) Urine Blood 1+ /uL (Negative) Urine Nitrite Negative (Negative) Urine Bilirubin Negative (Negative) Urine Urobilinogen Normal mg/dL (Negative) Urine Leukocyte Esterase 3+ /uL (Negative) Urine RBC 7 /hpf (0 - 3) Urine WBC Clumps Present /hpf (None Seen) Urine Microscopic WBC 818 /HPF (0-3) Urine Squamous Epithelial Cells None seen /hpf (<5) Urine Bacteria Few /hpf (None Seen) Urine Glucose Normal mg/dL (Normal) Urine Opiates Screen Neg (NEGATIVE) Urine Fentanyl Screen Neg (NEGATIVE) Urine Barbiturates Screen Neg (NEGATIVE) Urine Phencyclidine Screen Neg (NEGATIVE) Urine Amphetamines Screen Neg (NEGATIVE) Urine Benzodiazepines Screen Neg (NEGATIVE) Urine Cocaine Screen Neg (NEGATIVE) Urine Cannabinoids Screen Neg (NEGATIVE) Other Laboratory Tests 07/07/24 09:18 Brief Hx & Hospital Course: A 58-year-old male with CKD stage 5 on intermittent hemodialysis, likely secondary to chronic obstructive uropathy (BPH vs possible bladder cancer), presented with abdominal burning and cloudy, foul-smelling nephrostomy output. He has a history of bilateral nephrostomy tube placement for obstructive uropathy/ (03/2023), and dialysis was stopped in 08/2023 after partial renal recovery. He recently relocated from [place] with poor follow-up and had not received dialysis for nearly a year. Patient still had the tunnel catheter placed in mar 2023. At admission, he had evidence of complicated UTI with Citrobacter freundii and lab findings consistent with ARIELLE on CKD (BUN 101, Cr 5.2). CT showed significant prostatomegaly and no hydronephrosis or stones, possible bladder cancer with metastasis. Hospital Course: Patient was evaluated for sepsis and demand ischemia (elevated troponin without EKG changes). Started on IV fluids and broad-spectrum antibiotics (Meropenem). Nephrology was consulted and recommended exchange of nephrostomy tubes and consideration of HD due to lab findings. Nephrostomies were changed and tunneled catheter were removed. Tip culture was sent 07/06/24 and is growing microorganisms. Also ECHO showed LVEF 45%, severe LVH, diastolic dysfunction, moderate pulmonary hypertension (newly diagnosed HF) However, the patient refused dialysis and any further urologic intervention despite detailed discussions. Cardiology evaluation was pending but the patient left AMA before it could be completed. Patient stated that he is not afraid to and he knows his body. Multiple attempts of education were made but patient refused care. Very poor prognosis due to CKD stage 5 and possible bacteremia without treatment. General: Alert and oriented. Appears fatigued but in no acute distress. Mild discomfort due to abdominal pain. Chest: dressing in the chest, no bleeding Cardiac: Normal S1/S2, regular rhythm. No murmurs, rubs, or gallops. Peripheral pulses intact. Respiratory: Clear to auscultation bilaterally. No wheezes, rales, or rhonchi. Abdomen: Soft, non-distended. Mild tenderness in the suprapubic region. No rebound or guarding. Flank examination reveals well-healing nephrostomy tube sites bilaterally with no erythema or discharge. Bilateral nephrostomy tubes are in place and draining urine into collection bags. The urine in the bags is cloudy in appearance. No costovertebral angle tenderness on percussion. Extremities: No peripheral edema. No clubbing or cyanosis. Neurologic: Alert, oriented 3. No focal neurologic deficits noted Case discussed with Dr Simpson Consults/Reason for consult nephrology due to CKD urology due to possible bladder cancer patient left AMA before cardiology consult Operations or Procedures XY Removal of central venous cath, HISTORY: REMOVE HD CATH PROCEDURE: An informed consent was obtained. The patient was placed inclined on a gurney. The skin around the catheter was prepped with chlorhexidine which was allowed to dry and draped in the usual sterile fashion. Time out was performed. The skin and the catheter tract were infiltrated with 1% Lidocaine . The catheter tract was blunt dissected with a Bianca clamp and the tunneled catheter was removed. Hemostasis of the venotomy site was obtained with manual pressure. The skin opening was dressed with a sterile bandage. No immediate complication was noted. IMPRESSION: Successful removal of right internal jugular vein tunneled dialysis catheter. Tip cut and sent for cultures. XY CHANGE PERC. DRAIN W CONTRAST, HISTORY: With sepsis, nephrostomy tubes in place for 3 months here for exchange of bilateral tubes. PROCEDURE: Informed consent was obtained. The patient was placed on the fluoroscopic table in a prone position and IV sedation administered. The bilateral flank was prepped with chlorhexidine which was allowed to dry and draped in the usual sterile fashion. Time out was performed and the soft tissues infiltrated with 1% lidocaine local anesthetic. An antegrade nephrostogram was performed to confirm position of the previous left nephrostomy tube. The tube was cut and a guidewire was inserted through the nephrostomy tube into the ureter. The prior nephrostomy tube was removed, and a new 8.5 Fr multipurpose drainage catheter was advanced into the left renal pelvis over a wire. Completion antegrade nephrostogram demonstrates appropriate position of the new left nephrostomy tube in the renal pelvis. The catheter was secured in place and connected to gravity drainage. An antegrade nephrostogram was performed to confirm position of the previous right nephrostomy tube. The tube was cut and a guidewire was inserted through the nephrostomy tube into the ureter. The prior right nephrostomy tube was removed, and a new 8.5 Fr multipurpose drainage catheter was advanced into the renal pelvis over a wire. Completion antegrade nephrostogram demonstrates appropriate position of the new right nephrostomy tube in the renal pelvis. The catheter was secured in place and connected to gravity drainage. A sterile dressing was applied. No immediate complication was identified. DAP 445 FLUOROSCOPY TIME: 3.4 minutes. CONTRAST USED: 15 mL . SEDATION: Dr. Laura Meyer was personally responsible for the administration of moderate sedation during the procedure performed, including the use of an independent trained observer who had no other duties during the procedure. The drugs utilized were IV fentanyl and versed (see nursing log for details). The total time of supervision by the attending physician was approximately 45 minutes. FINDINGS: Right and left nephrostomy tubes were retracted into the caylx. Exchange and reposition of the right and left nephrostomy tubes into the renal pelvis. IMPRESSION: Exchange and reposition of the right and left 8.5 Fr nephrostomy tubes into the renal pelvis. PLAN: Routine catheter care. Routine exchange in [address] ABDOMEN AND PELVIS WITHOUT CONTRAST CLINICAL HISTORY: ABD PAIN TECHNIQUE: Multiple contiguous axial images of the abdomen and pelvis without intravenous contrast. The images were reformatted degenerate coronal and sagittal reconstructions. All CT scans at this medical facility are performed using dose modulation techniques as appropriate to a performed exam including the following:Automated exposure control was utilized; adjustment of the MA and/or KV according to patient size; and use of iterative reconstruction technique. Radiation Dose Information: CT Dose: CTDI volume is 6 mGy. Dose-length product is 280 mGy*cm Comparison: CT CT AB PEL WO CON-NO ORAL OR IV on DOS: 12/14/23 FINDINGS: Evaluation of the abdomen and pelvis is limited without intravenous contrast. There are bilateral nephrostomy tubes with the distal pigtail loops in the right and left renal pelvis. There is no significant hydronephrosis. There is no evidence of nephrolithiasis. There is a contracted gallbladder without obvious radiopaque gallstone. The liver, pancreas, adrenal glands, and spleen appear within normal limits. There are mildly prominent size retroperitoneal lymph nodes along the abdominal aorta and IVC measuring up to 1 cm in the short axis.. There is no free fluid or free air. The stomach grossly appears unremarkable. The small and large bowel loops demonstrate normal caliber and distribution. A normal appearing appendix is seen in the right lower quadrant abdomen. The abdominal aorta and IVC appear within normal limits. There is marked prostatomegaly. Bladder demonstrates circumferential wall thickening. There is no evidence of a pelvic mass or fluid collection. There is a large fat containing right bochdalek hernia. There is small right pleural effusion with atelectasis in the right lung base. There is also scarring versus atelectasis in the left lung base. There is cardiomegaly with small pericardial effusion. There is no acute osseous abnormality. IMPRESSION: 1. There are bilateral nephrostomy tubes in place. There is no evidence of hydronephrosis or nephrolithiasis. 2. Marked prostatomegaly with circumferential bladder wall thickening which May relate to chronic outlet obstruction. Clinical correlation is recommended. 3. Nonspecific mildly prominent retroperitoneal lymph nodes. Metastatic lymphadenopathy is not excluded. 4. Small right pleural effusion with atelectasis in the right lung base. 5. Additional findings as noted above. Condition at Discharge: Critical Final Diagnosis/Problems List #Dialysis urgency #Possible bacteremia #CKD stage 5 vs ESRD due to obstructive uropathy #s/p exchange bilateral nephrostomy #s/p removal tunneled catheter #Sepsis due to complicated UTI: citrobacter freundii #Newly diagnosed HFrEF #NSTEMI type 2: most likely #BPH #Possible bladder cancer #Possible metastasis #Hepatitis C: chronic #Anemia of chronic disease #h/o seizures Discharge Disposition: AMA Discharge Statement: "Patient was advised to return to the ER or call 911 if any headaches, dizziness, shortness of breath, chest pain, abdominal pain, bleeding, fevers, or worsening of medical condition. Patient was counseled about treatment plan, medications, possible side effects, patientverbalized understanding. All questions were answered to the best of my ability. This discharge took greater then 30 minutes in planning, reviewing documentation, counseling the patient, and discussing with other team members." ASSESSMENT ASSESSMENT Assessment Date of Service: Jul 07, 2024 Billing Provider: SARAH SIMPSON DO Common Visit Codes: 16488-VZI/OBS DISCH DAY >30min BUNNY LI RESIDENT Jul 07, 2024 11:34 SARAH SIMPSON DO Jul 10, 2024 14:52
[2024-07-07 21:00] VITALS: BP 113/74; PULSE 83; RESP 19; TEMP 97.7; O2SAT 95
[2024-07-08 01:00] VITALS: BP 109/56; PULSE 68; RESP 17; TEMP 97.1; O2SAT 99
[2024-07-08 05:00] VITALS: BP 65/47; PULSE 61; RESP 18; TEMP 97.3; O2SAT 95
[2024-07-08 06:28] VITALS: BP 104/62
== END 2024-07-07 10:00 | disposition left against medical advice (07) | DRG 720 ==
LOC: ER 08:55 → OVERFLOW 15:43 → TELE-WESTW 17:20
PROVIDERS: ADMIT Internal Medicine; ATTEND General Practice
PROC: 0T25X0Z Change Drainage Device in Kidney, External Approach (ICD-10-PCS; principal; 2024-07-06)
PROC: 0JPTXXZ Removal of Tunneled Vascular Access Device from Trunk Subcutaneous Tissue and Fascia, External Approach (ICD-10-PCS; 2024-07-06)
PROC: 02PAX3Z Removal of Infusion Device from Heart, External Approach (ICD-10-PCS; 2024-07-06)
PROC: BT131ZZ Fluoroscopy of Bilateral Kidneys using Low Osmolar Contrast (ICD-10-PCS; 2024-07-06)
DX: A41.59 Other Gram-negative sepsis (principal); I21.A1 Myocardial infarction type 2; I50.41 Acute combined systolic (congestive) and diastolic (congestive) heart failure; E87.20 Acidosis, unspecified; D63.1 Anemia in chronic kidney disease; E83.39 Other disorders of phosphorus metabolism; I13.2 Hypertensive heart and chronic kidney disease with heart failure and with stage 5 chronic kidney disease, or end stage renal disease; N17.9 Acute kidney failure, unspecified; N18.6 End stage renal disease; N39.0 Urinary tract infection, site not specified; C67.9 Malignant neoplasm of bladder, unspecified; N13.8 Other obstructive and reflux uropathy; N40.1 Benign prostatic hyperplasia with lower urinary tract symptoms; B18.2 Chronic viral hepatitis C; I25.2 Old myocardial infarction; Z79.899 Other long term (current) drug therapy; Z85.51 Personal history of malignant neoplasm of bladder; Z91.199 Patient's noncompliance with other medical treatment and regimen due to unspecified reason; B96.89 Other specified bacterial agents as the cause of diseases classified elsewhere
CPT/HCPCS: 36415; 36589; 50435; 71045; 74018; 74176; 75984; 80048; 80053; 80061; 80074; 80307; 81001; 82306; 82607; 83036; 83735; 84100; 84443; 84484; 85025; 85610; 85730; 87040; 87070; 87077; 87081; 87086; 87088; 87186; 93005; 93306; 96365; 96375; 99152; G0378; J2003; J2185; J2250